=== PATIENT | male | born 1935 | race Caucasian/White ===

== ENCOUNTER 2024-05-05 12:54 | Outpatient (CLI) | payer MEDICARE, BC, SELFPAY ==
[2024-05-05 13:07] LABS: Basophils Percent Auto 0.4 % (0.2-1.2); Eosinophils Absolute Auto 0.4 K/mm3 (0-0.3); Eosinophils Percent Auto 4.6 % (0-4.4); Hematocrit 32.1 % (42.0-52.0); Hemoglobin 10.5 g/dL (14.0-18.0); Immature Granulocyte Absolute 0.02 K/mm3 (0.00-0.031); Immature Granulocyte Percent A 0.2 % (0-0.5); Lymphocytes Absolute Auto 1.86 K/mm3 (0.9-3.2); Lymphocytes Percent Auto 23.2 % (18.3-44.2); Mean Corpuscular HGB Conc 32.7 g/dl (32-36); Mean Corpuscular Hemoglobin 31.1 pg (26-34); Mean Platelet Volume 8.8 fl (7.4-10.4); Monocytes Absolute Auto 0.7 K/mm3 (0.1-0.6); Monocytes Percent Auto 8.1 % (2.6-8.5); Neutrophils Absolute Auto 5.1 K/mm3 (1.3-6.7); Neutrophils Percent Auto 63.5 % (45.5-73.1); Platelet Count Result 150 k/mm3 (150-375); Red Blood Count 3.38 M/mm3 (4.6-6.20); Red Cell Distribution Width 13.8 % (11.5-14.5)
--- OUTSIDE RECORDS SUMMARY | 2024-05-05 14:11 | XMS_ITS | Referral Summary ---
Author Organization [facility] Address [address] [place] [address] Care Team Providers Care Oracle Fusion Developer Name Role Phone Jose Crocker MD Primary Care Provide r Allergies No known active allergies Medications amiodarone (PACERONE) 200 mg tablet Take 200 mg by mouth daily 0 Active atorvastatin (LIPITOR) 40 mg tablet Take 1 tablet (40 mg total) by mouth daily 0 Active OneTouch Ultra Blue Test Strip strip USE 1 STRIP TO CHECK GLUCOSE THREE TIMES DAILY 0 Active calcitRIOL (ROCALTROL) 0.25 mcg capsule Take 1 capsule (0.25 mcg total) by mouth daily 0 Active ciprofloxacin (CIPRO) 250 mg tablet Take 250 mg by mouth 2 (two) times a day 0 Active ferrous sulfate 325 mg (65 mg of elemental iron) tablet TAKE 1 TABLET BY MOUTH ONCE DAILY FOR 90 DAYS 0 Active folic acid (FOLVITE) 1 mg tablet Take 1 tablet (1,000 mcg total) by mouth daily 0 Active Basaglar KwikPen U-100 Insulin 100 unit/mL (3 mL) insulin pen as needed 0 Active Lantus U-100 Insulin 100 unit/mL injection as needed 0 Active HumaLOG KwikPen Insulin 100 unit/mL insulin pen daily as needed 0 Active lansoprazole (PREVACID) 30 mg capsule Take 1 capsule (30 mg total) by mouth daily 0 Active Synthroid 25 mcg tablet TAKE 1 TABLET BY MOUTH ONCE DAILY IN THE MORNING FOR 30 DAYS 0 Active losartan (COZAAR) 50 mg tablet Take 1 tablet (50 mg total) by mouth daily 0 Active BD Ultra-Fine [place] Pen Needle 32 gauge x 5/32 needle USE DIRECTED UP TO 4 TIMES DAILY 0 Active sodium bicarbonate 650 mg tablet Take by mouth daily 0 Active cholecalciferol (VITAMIN D-3) 50,000 unit capsule Take 1 capsule (50,000 Units total) by mouth once a week Active furosemide (LASIX) 20 mg tablet furosemide 20 mg tablet 9 Active Vitamin D2 1,250 mcg (50,000 unit) capsule Take 1 capsule (50,000 Units total) by mouth once a week 2 Active insulin aspart (NovoLOG) 100 unit/mL (3 mL) pen for injection as needed Active Farxiga 5 mg tablet Take 1 tablet (5 mg total) by mouth daily Active aspirin 81 mg enteric coated tablet ASPIRIN 81 MG ORAL TABLET 4 Active phenytoin ER (DILANTIN) 100 mg ER capsuleIndicatio ns: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 with no seizures reported over the last 1 year interval. He has no tolerability issues with medication. I have renewed his phenytoin 200 mg b.i.d. as scheduled. I will obtain a phenytoin level, AST, and ALT for medication monitoring of his phenytoin usage. I will see him back in 1 year. Medication monitoring encounter 11/14/2019 Assessment & Plan (11/14/2019 1:59 PM CDT): I will obtain a phenytoin level, AST, and ALT for medication monitoring of his phenytoin usage. 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 Supportive care is indicated. 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 Gender Identity Not on file Sexual Orientation Not on file Last Filed Vital Signs Vital Sign Reading Time Taken Comments Blood Pressure 100/65 09/07/2023 8:20 AM CDT Pulse 66 09/12/2021 10:06 AM CDT Temperature 36.3 C (97.3 F) 09/12/2021 10:06 AM CDT Respiratory Rate - - Oxygen Saturation 98% 08/29/2014 10:59 AM CDT Inhaled Oxygen Concentration - - Weight 65.3 kg (144 lb) 09/07/2023 8:20 AM CDT Height 160 cm (5' 3 ) 09/07/2023 8:20 AM CDT Body Mass Index 25.51 09/07/2023 8:20 AM CDT Plan of Treatment Not on file Procedures Procedure Name Priority Date/Time Associated Diagnosis Comments SERUM LIPID PANEL Routine 06/13/2014 5:2 3 AM CDT from Last 3 Months or Most Recently Relevant to Health Maintenance Results * (ABNORMAL) Serum lipid panel (06/13/2014 5:23 AM CDT) Cholesterol 122 0 - 200 mg/dl HISTORICAL RESULTS Comment: Interpretive Data Desirable: <200 mg/dL Borderline high: 200-239 mg/dL High: >240 mg/dL Literature Reference: National Cholesterol Education Program (NCEP) Expert Panel on Detection, Evaluation, and Treatment of High Blood Cholesterol in Adults (Adult Treatment Panel III). Circulation 2004; 110:227. Current interpretive data was last revised on 2005. Triglycerides 142 0 - 150 mg/dl HISTORICAL RESULTS Comment: Interpretive Data Desirable: < 150 mg/dL Borderline High: 150 - 199 mg/dL High: > 200 mg/dL Literature Reference: See Cholesterol Current interpretive data was last revised on 06. HDL 33(L) 40 - 199 mg/dl HISTORICAL RESULTS Comment: Interpretive Data Less than 40 mg/dL - low; A major risk factor for heart disease. Greater than or equal to 60 mg/dL - High; considered protective of heart disease. Literature Reference: See Cholesterol Current interpretive data was last revised on 2007. LDL 61 0 - 129 mg/dl HISTORICAL RESULTS Comment: Interpretive Data Optimal: < 100 mg/dL Near Optimal: 100 - 129 mg/dL Borderline High: 130 - 159 mg/dL High: > 160 mg/dL Literature Reference: See Cholesterol Current interpretive data was last revised on 06. Non-HDL cholesterol, calculated 89 mg/dl HISTORICAL RESULTS Comment: Interpretive Data When triglycerides are >200 mg/dL, non-HDL C is a secondary target of therapy, with a goal 30 mg/dL higher than the identified LDL-C goal. Reference: See Cholesterol Reference. Current interpretive data was last revised 2011. Serum 06/13/2014 5:23 AM CDT Bruce Garcia MD LAB BLOOD ORDERABLES Final R esult HISTORICAL RESULTS from Last 3 Months or Most Recently Relevant to Health Maintenance Insurance MEDICARE BLUE TRADITIONAL OOS MEDICARE BLUE TRADITIONAL OOS Care Teams Oracle Fusion Developer Relationship Specialty Start Date End Date Jose Crocker MD [address] [place] [address] PCP - General Internal Medicine 11/14/19
--- OUTSIDE RECORDS SUMMARY | 2024-05-05 14:11 | XMS_ITS | Patient Health Record ---
Author Organization [facility] Address [address] [place] [address] Care Team Providers Care Milk Deliverer Name Role Phone Aguilar Garcia Unavailable [phone] REASON FOR REFERRAL No Information MEDICATIONS Medication SIG (Take, Route, Frequency, Duration) Notes Start Date End Date Status Sodium Bicarbonate 650 MG Take 1 tablet by mouth twice daily for 90 Active Vitamin D (Ergocalciferol) 1.25 MG (91722 UT) Take 1 capsule by mouth once a week for 21 Active Furosemide 40 MG Take 1 tablet by brian th once daily for 90 Active Calcitriol 0.25 MCG Take 1 capsule by mo uth once daily for 90 Active PROBLEMS Problem Type ICD Code Onset Dates Problem Status W/U Status Risk SNOMED Code Notes Problem Type 2 diabetes mellitus with hyperglycemia (E11.65) Active confirmed Hyperglycemia d ue to type 2 diabetes mellitus (436498336002965) Problem Secondary hyperparathyroid ism, not elsewhere classified (E21.1) Active confirmed Secondary hyperparathyroidism (26309727) Problem Essential (primary) hypertension (I10) Active confirmed Essential hypertension (18976382) Problem Renal osteodystrophy (N25.0) Active confirmed Renal osteodyst rophy (40370074) Problem Proteinuria, unspecified (R80.9) Active confirmed Proteinuria (34843699) Problem Colostomy 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) Active confirmed Colostomy prese nt (360612714) Problem Chronic kidney disease, stage 3 unspecified (N18.30) Active confirmed Chronic kidney disease stage 3 (disorder) (223183991) Problem Acute metabolic acidosis (E87.21) Active confirmed Encounters Encounter Location Date Provider Diagnosis [facility] [address] [facility] [address] [place] [address] 07/31/2023 Aguilar Garcia Chronic kidney disea se, stage 4 (severe) N18.4 ; Essential (primary) hypertension I10 ; Secondary hyperparathyroidism, not elsewhere classified E21.1 ; Renal osteodystrophy N25.0 ; Proteinuria, unspecified R80.9 and Type 2 diabetes mellitus with hyperglycemia E11.65 [facility] [address] [place] [address] 10/28/2023 Aguilar Garcia [facility] [address] [place] [address] 11/25/2023 Aguilar Garcia [facility] [address] [place] [address] 12/23/2023 Aguilar Garcia [facility] [address] [place] [address] 01/13/2024 Aguilar Garcia Essential (primary) hypertension I10 ; Chronic kidney disease, stage 3 unspecified N18.30 ; Secondary hyperparathyroidism, not elsewhere classified E21.1 ; Renal osteodystrophy N25.0 ; Proteinuria, unspecified R80.9 ; Type 2 diabetes mellitus with hyperglycemia E11.65 and Chronic kidney disease, stage 4 (severe) N18.4 [facility] [address] [place] [address] 03/16/2024 Aguilar Garcia Chronic kidney disea se, stage 3 unspecified N18.30 ; Essential (primary) hypertension I10 ; Colostomy status Z93.3 and Acute metabolic acidosis E87.21 [facility] [address] [place] [address] 05/04/2024 Aguilar Garcia Chronic kidney disea se, stage 3 unspecified N18.30 ; Renal osteodystrophy N25.0 ; Essential (primary) hypertension I10 ; Secondary hyperparathyroidism, not elsewhere classified E21.1 ; Proteinuria, unspecified R80.9 ; Type 2 diabetes mellitus with hyperglycemia E11.65 ; Colostomy status Z93.3 and Acute metabolic acidosis E87.21 [facility] [address] [place] [address] 07/31/2023 Aguilar Garcia [facility] [address] [place] [address] 01/13/2024 Aguilar Garcia ASSESSMENTS Encounter Date Diagnosis Assessment Notes Treatment Notes Treatment Clinical Notes Section Notes 07/31/2023 Chronic kidney disease, stage 4 (severe) (ICD-10 - N18.4) 01/13/2024 Essential (primary) hypertension (ICD-10 - I10) 01/13/2024 Chronic kidney disease, stage 3 unspecified (ICD-10 - N18.30) 03/16/2024 Chronic kidney disease, stage 3 unspecified (ICD-10 - N18.30) 05/04/2024 Chronic kidney disease, stage 3 unspecified (ICD-10 - N18.30) 05/04/2024 Renal osteodystrophy (ICD-10 - N25.0) 03/16/2024 Essential (primary) hypertension (ICD-10 - I10) 01/13/2024 Secondary hyperparathyroidism , not elsewhere classified (ICD-10 - E21.1) 07/31/2023 Essential (primary) hypertension (ICD-10 - I10) 07/31/2023 Secondary hyperparathyroidism , not elsewhere classified (ICD-10 - E21.1) 01/13/2024 Renal osteodystrophy (ICD-10 - N25.0) 03/16/2024 Colostomy status (ICD-10 - Z93.3) 05/04/2024 Essential (primary) hypertension (ICD-10 - I10) 05/04/2024 Secondary hyperparathyroidism , not elsewhere classified (ICD-10 - E21.1) 03/16/2024 Acute metabolic acidosis (ICD-10 - E87.21) 01/13/2024 Proteinuria, unspecified (ICD-10 - R80.9) 07/31/2023 Renal osteodystrophy (ICD-10 - N25.0) 07/31/2023 Proteinuria, unspecified (ICD-10 - R80.9) 01/13/2024 Type 2 diabetes mellitus with hyperglycemia (ICD-10 - E11.65) 05/04/2024 Proteinuria, unspecified (ICD-10 - R80.9) 05/04/2024 Type 2 diabetes mellitus with hyperglycemia (ICD-10 - E11.65) 07/31/2023 Type 2 diabetes mellitus with hyperglycemia (ICD-10 - E11.65) 01/13/2024 Chronic kidney disease, stage 4 (severe) (ICD-10 - N18.4) 05/04/2024 Colostomy status (ICD-10 - Z93.3) 05/04/2024 Acute metabolic acidosis (ICD-10 - E87.21) PLAN OF TREATMENT Next Appt Details Provider Name:Aguilar Garcai , 07/06/2024 03:15:00 PM, [address] [facility], [place], [address],
--- OUTSIDE RECORDS SUMMARY | 2024-05-05 14:11 | XMS_ITS ---
Author Organization [facility] Address [address] [place] [address] Care Team Providers Care Sugar Cane Grower Name Role Phone Abel Garciat Unavailable [phone] Encounters Encounter Location Date Provider Diagnosis [facility] [address] [facility] [address] [place] [address] 05/04/2024 Aguilar Garcia Chronic kidney disea se, stage 3 unspecified N18.30 ; Renal osteodystrophy N25.0 ; Essential (primary) hypertension I10 ; Secondary hyperparathyroidism, not elsewhere classified E21.1 ; Proteinuria, unspecified R80.9 ; Type 2 diabetes mellitus with hyperglycemia E11.65 ; Colostomy status Z93.3 and Acute metabolic acidosis E87.21 ASSESSMENTS Encounter Date Diagnosis Assessment Notes Treatment Notes Treatment Clinical Notes Section Notes 05/04/2024 Chronic kidney disease, stage 3 unspecified (ICD-10 - N18.30) 05/04/2024 Renal osteodystrophy (ICD-10 - N25.0) 05/04/2024 Essential (primary) hypertension (ICD-10 - I10) 05/04/2024 Secondary hyperparathyroidism , not elsewhere classified (ICD-10 - E21.1) 05/04/2024 Proteinuria, unspecified (ICD-10 - R80.9) 05/04/2024 Type 2 diabetes mellitus with hyperglycemia (ICD-10 - E11.65) 05/04/2024 Colostomy status (ICD-10 - Z93.3) 05/04/2024 Acute metabolic acidosis (ICD-10 - E87.21) PLAN OF TREATMENT Next Appt Details Provider Name:Aguilar Garcia , 07/06/2024 03:15:00 PM, [address] [facility], [address], [place], [address], Progress Notes * MADDISON CARLOSDOB: [birth year] (88 yo M)Acc No.[id number]:05/04/2024 Progress Notes Patient: MADDISON CARLOS Provider: MD BOLIVAR, Carin.Italo.C.P, F.A.S.N. :1935 Age:88 Y Sex:Male Date:05/04/2024 Address:[address] [place] [address] Subjective: * Chief Complaints: * * Medical History: Objective: Assessment: * Assessment: 1. Chronic kidney disease, stage 3 unspecified - N18.30 (Primary) 2. Renal osteodystrophy - N25.0 3. Essential (primary) hypertension - I10 4. Secondary hyperparathyroidism, not elsewhere classified - E21.1 5. Proteinuria, unspecified - R80.9 6. Type 2 diabetes mellitus with hyperglycemia - E11.65 7. Colostomy status - Z93.3 8. Acute metabolic acidosis - E87.21 Plan: * Treatment: * Billing Information: * Visit Code: 69999 Office Visit, Est Pt., Level 4. * Procedure Codes: * TESTER Sign off status: Pending * Provider: MD BOLIVAR, Carin.Italo.C.P, F.A.S.N. Date: 05/04/2024
--- OUTSIDE RECORDS SUMMARY | 2024-05-05 14:11 | XMS_ITS | Clinical Summary ---
Author Organization [facility] Address [address] [place] [address] Care Team Providers Care Offender Employment Specialist Name Role Phone Keyon Crocker MD Primary Care Provider Allergies No known active allergies Medications atorvastatin (LIPITOR) 40 mg tablet Take 40 mg by mouth daily with supper. Active folic acid (FOLVITE) 1 mg tablet Take 1 mg by mouth daily. Active losartan (COZAAR) 50 mg tablet Take 50 mg by mouth daily. Active ferrous sulfate 325 mg (65 mg iron) tablet Take 325 mg by mouth daily. Active cholecalciferol 50,000 unit Capsule Take 50,000 Units by mouth every 7 days. Active lansoprazole (PREVACID) 30 mg Capsule, Delayed Release(E.C.) Take 30 mg by mouth daily. Active SODIUM BICARBONATE ORAL Take by mouth. Activ e furosemide (LASIX) 20 mg tablet Take 20 mg by mouth daily. Active insulin glargine (LANTUS) 100 unit/mL injection Inject by subcutaneous injection. Active amiodarone (CORDARONE) 200 mg tablet Take 200 mg by mouth daily. Active calcitRIOL (ROCALTROL) 0.25 mcg capsule Take 0.25 mcg by mouth daily. Active aspirin (ECOTRIN EC) 81 mg Tablet, Delayed Release (E.C.) Take 81 mg by mouth daily. Active phenytoin sodium (DILANTIN) 100 mg extended release capsule TAKE 2 CAPSULES BY MOUTH TWICE DAILY 3 11/17/19 19 Active VITAMIN D2 50,000 unit capsule TAKE 1 CAPSULE BY MOUTH ONCE A WEEK 2 12/15/19 19 Active Cyanocobalamin- Cobamamide 5,000-100 mcg Tablet, Sublingual cyanocobalamin (B12)-cobamamide 5,000 mcg-[address] by sublingual route. Active ONETOUCH ULTRA BLUE TEST STRIP Strip USE 1 STRIP TO CHECK GLUCOSE THREE TIMES DAILY 03/21/19 Active Insulin Syringe-Needle U-100 (BD Insulin Syringe Ultra-Fine) 0.5 mL 31 gauge x 5/16 Syringe BD Insulin Syringe Ultra-Fine 0.5 mL 31 gauge x 5/16 Active cyanocobalamin, vitamin B-12, 2,[address] 2,500 mcg under tongue every 30 days. Active docusate sodium (Colace) 100 mg capsule Take by mouth. 08/26/19 18 Active Synthroid 25 mcg tablet TAKE 1 TABLET BY MOUTH ONCE DAILY IN THE MORNING FOR 30 DAYS 01/11/20 Active levothyroxine 75 mcg tablet levothyroxine 75 mcg tablet Active Active Problems Problem Noted Date Diagnosed Date Colostomy status 04/21/2019 Ulcerative colitis without complications 020 Type 2 diabetes mellitus wit h diabetic chronic kidney disease 04/21/2019 Anemia of chronic renal failure, stage 4 (severe ) 01/13/2019 Encounters Date Type Department Care Team Description 05/05/2024 1:00 PM POWDER CORE TESTER Office Visit [facility] Oncology and Hematology - [place] [place] [id number] Jung Arvizu MD Anemia of chronic kidney failure, stage 4 (severe) ([facility]) (Primary Dx) 05/04/2024 Orders Only [facility]cology [facility]ology - [place] [place] [phone] Jung Arvizu MD 04/20/2024 External Device Data STL ABSTRACTION Provider, Abstract 04/18/2024 Telephone [facility]ology - [place] [place] [phone] Jung Arvizu MD labs for appt 03/24/2024 External Device Data STL ABSTRACTION Provider, Abstract from Last 3 Months Family History Medical History Relation Name Comments Shanae Gerhig's Disease Mother Relation Name Status Comments Brother Alive Father Maternal Grandfather Alive Mother Sister 1 Alive Sister 2 Alive Sister 3 Alive Social History Tobacco Use Types Packs/Day Years Used Date Smoking Tobacco: Former Cigarettes 2 30 0 06/01/1944 - 06/01/1974 Smokeless Tobacco: Never Tobacco Cessation:Counseling Given: Not Answered Alcohol Use Standard Drinks/Week Comments Yes 0 (1 standard drink = 0.6 oz pur e alcohol) Sex and Gender Information Value Date Recorded Sex Assigned at Not on file Legal Sex Male 12:03 PM POWDER CORE TESTER Gender Identity Not on file Sexual Orientation Not on file Last Filed Vital Signs Vital Sign Reading Time Taken Comments Blood Pressure 138/71 05/05/2024 1:17 PM POWDER CORE TESTER Pulse 66 05/05/2024 1:14 PM POWDER CORE TESTER Temperature 36.6 C (97.8 F) 05/05/2024 1:14 PM POWDER CORE TESTER Respiratory Rate 15 05/05/2024 1:14 PM POWDER CORE TESTER Oxygen Saturation 95% 05/05/2024 1:14 PM POWDER CORE TESTER Inhaled Oxygen Concentration - - Weight 62.1 kg (137 lb) 05/05/2024 1:14 PM POWDER CORE TESTER Height 160 cm (5' 3 ) 09/12/2021 1:09 PM CDT Body Mass Index 24.27 09/12/2021 1:09 PM CDT Plan of Treatment Upcoming Encounters Date Type Department Care Team (Late st Contact Info) Description 11/16/2024 1:00 PM CDT Office Visit [facility] Oncology and Hematology [facility] [address] [place] [address] [facility] [address] [place] [address] Jung Arvizu MD [address] [facility] [address] [place] [address] Health Maintenance Due Date Last Done Comments DIABETES ANNUAL FOOT EXAM 06/04/1953 DIABETES MICROALBUMIN ANNUAL SCREEN 06/04/1953 LDL CHOLESTEROL ANNUAL 06/04/1953 DTAP/TDAP/TD VACCINES (1 - Tdap) 06/04/1954 PNEUMOCOCCAL VACCINE 50+ YEA RS (1 of 2 - PCV) 06/04/1954 Traditional Medicare (ACO) A nnual Wellness Visit 06/04/1954 ZOSTER VACCINE (1 of 2) 06/04/1985 RSV VACCINE (60+ or ) (1 - 1-dose 75+ series) 06/04/2010 DIABETES ANNUAL RETINAL EXAM 11/29/2022, 04/10/2017, 04/07/2017, Additional history exists INFLUENZA VACCINE (#1) 2023 DIABETES HBA1C Q 6 MONTHS 04/21/20242023, 08/31/2023, 04/07/2023, Additional history exists Procedures Procedure Name Priority Date/Time Associated Diagnosis Comments IRON PANEL Routine 04/26/2024 3:06 PM POWDER CORE TESTER from Last 3 Months Results * IRON PANEL (04/26/2024 3:06 PM POWDER CORE TESTER) Blood us Jung Arvizu MD CHEMISTRY ORDERABLES Final Resu lt from Last 3 Months Insurance MEDICARE PART A AND B [employer] ACCESS/TRUE [employer] PPO MEDICARE PART A AND B [employer] ACCESS/[employer] PPO Care Teams Offender Employment Specialist Relationship Specialty Start Date End Date Keyon Crocker MD PCP - General Internal Medicine 03/09/18
--- OUTSIDE RECORDS SUMMARY | 2024-05-05 14:11 | XMS_ITS | Clinical Summary ---
Author Organization [facility] [place] Address [address] [place] [address] Care Team Providers Care Cane Splicer Name Role Phone Jose Crocker MD Primary [...] monitoring of his phenytoin usage. 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 Supportive care is indicated. Type 2 diabetes mellitus wit h diabetic chronic kidney disease 04/21/2019 Fall 03/20/2018 Ulcerative pancolitis 07/13/2012 Chronic ulcerative proctitis 06/09/2011 Open wound 10/31/2010 Surgical History Surgery Date Site/Laterality Comments NM CORONARY ARTERY BYPASS 1 CORONARY VENOUS GRAFT CABG - (Added by TW Conv) NM CONTINENT ILEOSTOMY KOCK PROCEDURE SPX Ileostomy Care - (Added by TW Conv) ILEOSTOMY Ileostomy - (Added by TW Conv) Medical History Medical History Date Comments History of other diseases of the circulatory system, not elsewhere classified Acute Myocardial Infarction - (Added by TW Conv) Personal history of arthritis Ar thritis - (Added by TW Conv) Personal history of other di seases of the digestive system History of gastritis - (Adde d by TW Conv) Pulmonary emphysema (HCC) Emphys chace - (Added by TW Conv) Personal history of other di seases of the circulatory system History of hypertension - (A dded by TW Conv) Personal history of other en docrine, nutritional and metabolic disease History of diabetes mellitus - (Added by TW Conv) Personal history of diseases of the blood and blood-forming organs and certain disorders involving the immune mechanism History of anemia - (Added b y TW Conv) Seizures (HCC) Family History Medical History Relation Name Comments Hypertension Brother No Known Problems Father Cancer Mother Hypertension Other 1 Hypertension - mother (Added by TW Conv) Breast cancer Other 2 Breast Cancer - MGM (Added by TW Conv) Diabetes Other 3 Diabetes Mellit us - mother (Added by TW Conv) ALS Other 4 Amyotrophic Lat eral Sclerosis - mother (Added by TW Conv) Breast cancer Sister 1 No Known Problems Sister 2 No Known Problems Sister 3 Relation Name Status Comments Brother Alive Father Mother Other 1 Other 2 Other 3 Other 4 Sister 1 Alive Sister 2 Alive Sister 3 Alive Social History Tobacco Use Types Packs/Day Years Used Date Smoking Tobacco: Former Smokeless Tobacco: Never Tobacco Cessation:Counseling Given: Not Answered Sex and Gender Information Value Date Recorded Sex Assigned at Not on file Legal Sex Male 1:31 AM [employer] Gender Identity Not on file Sexual Orientation Not on file Obstetrics History Last Filed Vital Signs Vital Sign Reading [...] 09/07/2023 8:20 AM CDT Plan of Treatment Health Maintenance Due Date Last Done Comments Albumin Creatinine Ratio, Urine 1935 Depression Screening 1935 Fall Risk Assessment 1935 Foot Exam 1935 TSH Level 1935 eGFR 1935 Dilated Eye Exam 06/04/1945 DTaP/Tdap/Td Vaccine (1 - Tdap) 06/04/1946 Hepatitis B Screening 06/04/1953 Well Visit 65+ 06/04/2000 Lipid Panel 06/14/2015 06/13/2014, 06/10/2013 Hemoglobin A1C 09/18/2018 03/21/2018 Influenza Vaccine (#1) 2023 9, 01/04/2019, 12/15/2017, Additional history exists Pneumococcal vaccine 65+ Completed 02/05/2017, 08/2015 Zoster Vaccine Completed 05/03/2019, 03/2019, 01/04/2019 Procedures Procedure Name Priority Date/Time Associated Diagnosis [...] revised 2011. Serum 06/13/2014 5:23 AM CDT us Bruce Garcia MD LAB BLOOD ORDERABLES Final R esult HISTORICAL RESULTS from Last 3 Months or Most Recently Relevant to Health Maintenance Insurance MEDICARE BLUE TRADITIONAL OOS MEDICARE BLUE TRADITIONAL OOS Care Teams Cane Splicer Relationship Specialty Start Date End Date Jose Crocker MD [address] [place] [address] PCP - General Internal Medicine 11/14/19
--- OUTSIDE RECORDS SUMMARY | 2024-05-05 14:11 | XMS_ITS ---
Author Organization [facility] Address [address] [facility] [address] [facility] [address] [place] [address] Care Team Providers Care Employment Counselor Name Role Phone JoseLuisAguilar Unavailable [phone] MEDICATIONS Medication SIG (Take, Route, Fr equency, Duration) Notes Start Date End Date Status Calcitriol 0.25 MCG Take 1 capsule by mo uth once daily for 90 Active Encounters Encounter Location Date Provider Diagnosis [facility] [address] [facility] [address] [place] [address] 01/13/2024 Aguilar Garcia PLAN OF TREATMENT Medication Medication Name Sig Start Date Stop Date Notes Calcitriol 0.25 MCG Take 1 capsule by mo uth once daily for 90 Next Appt Details Provider Name:Aguilar Garcia , 07/06/2024 03:15:00 PM, [address] [facility] [address], [place], [address], Progress Notes * MADDISON CARLOSDOB: [birth year] (88 yo M)Acc No.[id number]:01/13/2024 Patient: MADDISON CARLOS :1935 Age:88 Y Sex:Male Address:[address] [place] [address], [facility] * Refills Refill Calcitriol Capsule, 0.25 MCG, 90 Capsule, Take 1 capsule by mouth once daily, 90, Refills=0 * true * Date:
--- OUTSIDE RECORDS SUMMARY | 2024-05-05 14:11 | XMS_ITS ---
Author Organization [facility] Address [address] [facility] [address] [facility] [address] [place] [address] Care Team Providers Care Sign Language Instructor Name Role Phone Aguilar Garcia Unavailable [phone] MEDICATIONS Medication SIG (Take, Route, Frequency, Duration) Notes Start Date End Date Status Vitamin D (Ergocalciferol) 1.25 MG (28305 UT) Take 1 capsule by mouth once a week for 21 Active Furosemide 40 MG Take 1 tablet by brian th once daily for 90 Active Calcitriol 0.25 MCG Take 1 capsule by mo uth once daily for 90 Active Sodium Bicarbonate 650 MG Take 1 tablet by mouth twice daily for 90 Active PROBLEMS Problem Type ICD Code Onset Dates Problem Status W/U Status Risk SNOMED Code Notes Problem Colostomy 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) Active confirmed Colostomy present (726311993) Problem Acute metabolic acidosis (E87.21) Active confirmed Encounters Encounter Location Date Provider Diagnosis [facility] [address] [facility] [address] [place] [address] 03/16/2024 Aguilar Garcia Chronic kidney disease, stage 3 unspecified N18.30 ; Essential (primary) hypertension I10 ; Colostomy status Z93.3 and Acute metabolic acidosis E87.21 ASSESSMENTS Encounter Date Diagnosis Assessment Notes Treatment Notes Treatment Clinical Notes Section Notes 03/16/2024 Chronic kidney disease, stage 3 unspecified (ICD-10 - N18.30) 03/16/2024 Essential (primary) hypertension (ICD-10 - I10) 03/16/2024 Colostomy status (ICD-10 - Z93.3) 03/16/2024 Acute metabolic acidosis (ICD-10 - E87.21) PLAN OF TREATMENT Next Appt Details Provider Name:Aguilar Garcia , 07/06/2024 03:15:00 PM, [address], [address], Progress Notes * MADDISON CARLOSDOB: [birth year] (88 yo M)Acc No.[id number]:03/16/2024 Progress Notes Patient: MADDISON CARLOS Provider: MD BOLIVAR, ShajiP, F.A.S.N. :1935 Age:88 Y Sex:Male Date:03/16/2024 Address:[address] [place], [place] [id number] Subjective: * Chief Complaints: * * Medical History: * Medications: Taking Vitamin D (Ergocalciferol) 1.25 MG (73455 UT) Capsule Take 1 capsule by mouth once a week , Taking Furosemide 40 MG Tablet Take 1 tablet by mouth once daily , Taking Calcitriol 0.25 MCG Capsule Take 1 capsule by mouth once daily , Taking Sodium Bicarbonate 650 MG Tablet Take 1 tablet by mouth twice daily Objective: Assessment: * Assessment: 1. Chronic kidney disease, stage 3 unspecified - N18.30 (Primary) 2. Essential (primary) hypertension - I10 3. Colostomy status - Z93.3 4. Acute metabolic acidosis - E87.21 Plan: * Treatment: * Billing Information: * Visit Code: 85996 Office Visit, Est Pt., Level 4. * Procedure Codes: * DENTIAL COUNSELOR Sign off status: Pending * Provider: MD BOLIVAR, Carin.Italo.C.P, F.A.S.N. Date: 03/16/2024
--- OUTSIDE RECORDS SUMMARY | 2024-05-05 14:12 | XMS_ITS | Patient Health Summary ---
Author Organization [facility] Address [address] [place] [address] Care Team Providers Care Zinc Miner Name Role Phone Keyon Crocker MD Primary Care Provider Care, [facility] Unavailable [phone] Aguilar Garcia MD Unavailable [phone] Note from [facility],non-owned Affiliates and Associated Physician Practices is amultiple site organization consisting of ambulatory clinics and hospital sitesin [place], [place], [place] and [place]. This disclosure is being madepursuant to the Care Everywhere program and may not contain all information available regarding this patient. Last updated 17.[facility] Allergies No known active allergies Medications * Be aware that medications may not be up to date on this document. Alwaysverify current medications with the patient. * aspirin (ASPIRIN) 81 MG chew tablet Take 81 mg by mouth once daily * atorvastatin (LIPITOR) 40 MG tablet Take 40 mg by mouth at bedtime * calcitriol (ROCALTROL) 0.25 MCG capsule Take 0.25 mcg by mouth once daily * vitamin D, ergocalciferol, (DRISDOL) 14923 UNITS capsule Take 50,000 Units by mouth every 7 days * folic acid (FOLVITE) 1 MG tablet Take 1 mg by mouth once daily * phenytoin ER (PHENYTEK) 200 MG capsule Take by mouth 2 times daily 200 mg q AM 300 mg q PM * LOSARTAN POTASSIUM PO Take 50 mg by mouth once daily * insulin glargine (LANTUS) vial Inject 20 Units subcutaneously once daily as needed * ferrous sulfate 325 (65 FE) MG tablet Take 325 mg by mouth 2 times daily with morning and evening meal * lansoprazole (PREVACID) 30 MG capsule Take 30 mg by mouth daily before breakfast * cyanocobalamin, vitamin B-12, 2500 MCG tablet Dissolve 2,500 mcg under the tongue every 30 days * docusate sodium (COLACE) 100 MG capsule Take 100 mg by mouth 2 times daily * sodium bicarbonate 650 MG tablet Take 650 mg by mouth 2 times daily * polyethylene glycol 3350 (MIRALAX) packet(Started 03/24/2018) Take 17 g by mouth once daily * amiodarone (CORDARONE) 200 MG tablet(Started 03/24/2018) Take 1 tablet by mouth once daily * ondansetron (ZOFRAN) 4 MG tablet(Started 03/23/2018) Take 1 tablet by mouth every 6 hours as needed for Nausea/Vomiting * oxyCODONE-acetaminophen (PERCOCET) 5-325 MG tablet(Started 03/23/2018) Take 1 tablet by mouth every 6 hours as needed * lisinopril (PRINIVIL; ZESTRIL) 40 MG tablet(Started 12/22/2017) * losartan (COZAAR) 50 MG tablet(Started 03/23/2018) TK 1 T PO QD * phenytoin ER (DILANTIN) 100 MG capsule(Started 03/03/2018) * furosemide (LASIX) 20 MG tablet(Started 06/16/2018) Take by mouth once daily 2 refills left * Aspirin (ASPIR-LOW) 81 MG qd * Glucose Blood (COOL BLOOD GLUCOSE TEST STRIPS ) Dx: E11.9. Tests sugars 3 times daily, One Touch Ultra Mini Active Problems Problem Noted Date Diagnosed Date Olecranon bursitis, right elbow 06/21/2018 Closed fracture of proximal end of right humerus with routine healing 05/10/2018 Fall 03/20/2018 Humerus head fracture, right, closed, initial en counter 03/20/2018 Ulcerative pancolitis 07/13/2012 Chronic ulcerative proctitis 06/09/2011 Open wound 10/31/2010 Social History Tobacco Use Types Packs/Day Years Used Date Smoking Tobacco: Never Smokeless Tobacco: Never Alcohol Use Standard Drinks/Week Comments No 0 (1 standard drink = 0.6 oz pur e alcohol) Sex and Gender Information Value Date Recorded Sex Assigned at Not on file Gender Identity Not on file Sexual Orientation Not on file Last Filed Vital Signs Vital Sign Reading Time Taken Comments Blood Pressure 169/86 04/07/2018 2:03 PM [employer] Pulse 69 04/07/2018 2:03 PM [employer] Temperature 36.1 C (96.9 F) 03/23/2018 4:31 PM [employer] Respiratory Rate 18 03/23/2018 4:31 PM [employer] Oxygen Saturation 94% 03/23/2018 4:31 PM [employer] Inhaled Oxygen Concentration - - Weight 62.6 kg (138 lb) 10/05/2018 10:22 AM CDT Height 160 cm (5' 3 ) 10/05/2018 10:22 AM CDT Body Mass Index 24.45 10/05/2018 10:22 AM CDT Procedures * XR SHOULDER RIGHT 2VW OR MORE(Performed 10/05/2018) Performed for Follow up * XR SHOULDER RIGHT 2VW OR MORE(Performed 08/02/2018) Performed for Follow up * XR SHOULDER RIGHT 2VW OR MORE(Performed 06/21/2018) Performed for Follow up * XR SHOULDER RIGHT 2VW OR MORE(Performed 05/10/2018) Performed for Right shoulder pain, unspecified chronicity * CARDIAC EKG ORDER(Performed 04/25/2018) * XR SHOULDER RIGHT 2VW OR MORE(Performed 04/07/2018) Performed for Pain in joint of right shoulder * GLUCOSE - POINT OF CARE(Performed 03/23/2018) * VAS CAROTID DUPLEX BILATERAL(Performed 03/23/2018) Performed for Humerus head fracture, right, closed, initial encounter * GLUCOSE - POINT OF CARE(Performed 03/23/2018) * MAGNESIUM BLOOD(Performed 03/23/2018) * BASIC METABOLIC PANEL (CALCIUM TOTAL)(Performed 03/23/2018) * GLUCOSE - POINT OF CARE(Performed 03/22/2018) * GLUCOSE - POINT OF CARE(Performed 03/22/2018) * GLUCOSE - POINT OF CARE(Performed 03/22/2018) * GLUCOSE - POINT OF CARE(Performed 03/22/2018) * PHOSPHORUS BLOOD(Performed 03/22/2018) * MAGNESIUM BLOOD(Performed 03/22/2018) * BASIC METABOLIC PANEL (CALCIUM TOTAL)(Performed 03/22/2018) * CBC W/O DIFFERENTIAL(Performed 03/22/2018) * GLUCOSE - POINT OF CARE(Performed 03/21/2018) * GLUCOSE - POINT OF CARE(Performed 03/21/2018) * GLUCOSE - POINT OF CARE(Performed 03/21/2018) * GLUCOSE - POINT OF CARE(Performed 03/21/2018) * HEMOGLOBIN A1C(Performed 03/21/2018) * GLUCOSE - POINT OF CARE(Performed 03/21/2018) * GLUCOSE - POINT OF CARE(Performed 03/20/2018) * GLUCOSE - POINT OF CARE(Performed 03/20/2018) * GLUCOSE - POINT OF CARE(Performed 03/20/2018) * GLUCOSE - POINT OF CARE(Performed 03/20/2018) * EKG 12-LEAD(Performed 03/20/2018) Performed for Fall, initial encounter * T4 FREE(Performed 03/20/2018) * TSH(Performed 03/20/2018) * COMPREHENSIVE METABOLIC PANEL(Performed 03/20/2018) * CBC W AUTO DIFFERENTIAL(Performed 03/20/2018) * GLUCOSE - POINT OF CARE(Performed 03/20/2018) * XR SHOULDER RIGHT 2VW OR MORE(Performed 03/20/2018) Performed for Fall, initial encounter * CT CERVICAL SPINE WO CONTRAST(Performed 03/20/2018) Performed for Fall, initial encounter * CT HEAD WO CONTRAST(Performed 03/20/2018) Performed for Fall, initial encounter * XR SHOULDER RIGHT 2VW OR MORE(Performed 03/20/2018) Performed for Fall, initial encounter Results * XR SHOULDER RIGHT 2VW OR MORE (10/05/2018 10:08 AM CDT) Only the most recent of7 resultswithin the time period is included. Anatomical Region Laterality Modality Upper Extremity Radiographic Ilsa ging 10/05/2018 10:2 1 AM CDT Impressions 10/05/2018 10:21 AM CDT There is a nonunited humeral neck fracture with anterior angulation and impaction at the fracture site which appears improved in alignment when compared with the prior study however remains nonunited. No dislocation is seen. Degenerative changes are present in the acromioclavicular joint. Reading Radiologist: Mega Rincon MD on 10/05/2018 at 10:21 AM Narrative 10/05/2018 10:21 AM CDT Exam: Right shoulder, 3 views. History: Shoulder pain. Procedure Note Mega Rincon MD - 10/05/2018 Exam: Right shoulder, 3 views. History: Shoulder pain. IMPRESSION There is a nonunited humeral neck fracture with anterior angulation and impaction at the fracture site which appears improved in alignment when compared with the prior study however remains nonunited. No dislocation is seen. Degenerative changes are present in the acromioclavicular joint. Reading Radiologist: Mega Rincon MD on 10/05/2018 at 10:21 AM Heather Chambers PA-C DIAGNOSTIC IMAGING O RDERABLES * CARDIAC EKG ORDER (04/25/2018 10:46 AM [employer]) Narrative 04/25/2018 10:46 AM [employer] Ordered by an unspecified provider. Scanned Document CARDIAC SERVICES ORD ERABLES * (ABNORMAL) GLUCOSE - POINT OF CARE (03/23/2018 1:31 PM [employer]) Only the most recent of16 resultswithin the time period is included. Glucose WB/POC 147(H) 70 - 115 mg/dL 03/23/2018 1:34 PM [employer] [facility] Specimen Type Arterial/C apillary 03/23/2018 1:34 PM [employer] [facility] Blood BLOOD SPECIMEN / Unknown 03/23/2018 1:31 PM [employer] 03/23/2018 1:34 PM [employer] Narrative [facility] - 03/23/2018 1:34 PM [employer] Disintegrator: VALDO BELTRÁN Doug Borjas MD LAB - POINT OF CARE ORDERABLES [address] [phone] * VAS CAROTID DUPLEX BILATERAL (03/23/2018 12:20 PM [employer]) Anatomical Region Laterality Modality Duplex Doppler 03/23/2018 11:5 0 AM [employer] Narrative Procedure Note Dharmesh Chaudhry MD - 03/23/2018 Connie Olvera MD VASCULAR LAB O RDERABLES * (ABNORMAL) BASIC METABOLIC PANEL (CALCIUM TOTAL) (03/23/2018 2:54 AM [employer]) Only the most recent of2 resultswithin the time period is included. BUN 28(H) 7 - 26 mg/dL 03/23/2018 4:08 AM [facility] Creatinine 2.3(H) 0.6 - 1.2 mg/dL 03/23/2018 4:08 AM [facility] Sodium 132(L) 136 - 145 mmol/L 03/23/2018 4:08 AM [facility] Potassium 4.7(H) 3.5 - 4.5 mmol/L 03/23/2018 4:08 AM [facility] Chloride 98 98 - 107 mmol/L 03/23/2018 4:08 AM [facility] CO2 26 22 - 29 mmol/L 03/23/2018 4:08 AM [facility] Glucose 159(H) 70 - 115 mg/dL 03/23/2018 4:08 AM [facility] Calcium 8.6 8.4 - 10.2 mg/dL 03/23/2018 4:08 AM [facility] Anion Gap 13 8 - 18 03/23/2018 4:08 AM [facility] BUN/Creatinine Ratio 12 7 - 23 03/23/2018 4:08 AM [facility] Osmolality Calculated 283 270 - 300 mOsm/kg 03/23/2018 4:08 AM [facility] eGFR 27(L) >60 mL/min/1.7 3 m2 03/23/2018 4:08 AM [facility] Blood BLOOD SPECIMEN / Unknown Lab Venipuncture / Unknown 03/23/2018 2:54 AM [employer] 03/23/2018 3:35 AM [facility] Connie Olvera MD LAB - CHEMISTR Y ORDERABLES [address] [phone] * MAGNESIUM BLOOD (03/23/2018 2:54 AM [employer]) Only the most recent of2 resultswithin the time period is included. Magnesium 1.8 1.6 - 2.6 mg/dL 03/23/2018 4:08 AM [facility] Blood BLOOD SPECIMEN / Unknown Lab Venipuncture / Unknown 03/23/2018 2:54 AM [employer] 03/23/2018 3:35 AM [employer] Connie Olvera MD LAB - CHEMISTR Y ORDERABLES Performing Organization Address City/State/[facility] Co de Phone Number [address] [phone] * (ABNORMAL) CBC W/O DIFFERENTIAL (03/22/2018 4:22 AM [employer]) WBC 7.1 3.5 - 10.5 10 3/uL 03/22/2018 4:42 AM [facility] RBC 2.97(L) 4.30 - 5.70 10 6/uL 03/22/2018 4:42 AM [facility] Hemoglobin 9.0(L) 13.5 - 17.5 g/dL 03/22/2018 4:42 AM [facility] Hematocrit 27.7(L) 39.0 - 50.0 % 03/22/2018 4:42 AM [facility] MCV 93.3 81.0 - 97.0 fL 03/22/2018 4:42 AM [facility] MCH 30.3 28.0 - 34.0 pg 03/22/2018 4:42 AM [facility] MCHC 32.5 32.0 - 36.0 g/dL 03/22/2018 4:42 AM [facility] Platelet Count 162 150 - 400 10 3/uL 03/22/2018 4:42 AM [facility] RDW-SD 46.1 36.0 - 50.0 fL 03/22/2018 4:42 AM [facility] RDW-CV 13.5 11.2 - 14.8 % 03/22/2018 4:42 AM [facility] MPV 9.6 9.3 - 12.8 fL 03/22/2018 4:42 AM [facility] nRBC Absolute 0.00 0 10 3/uL 03/22/2018 4:42 AM [facility] nRBC Auto 0.0 0 /100 WBC 03/22/2018 4:42 AM [facility] Blood BLOOD SPECIMEN / Unknown Lab Venipuncture / Unknown 03/22/2018 4:22 AM [employer] 03/22/2018 4:29 AM [employer] Orin Villanueva MD LAB - HEMATOLOGY ORD ERABLES [address] [phone] * PHOSPHORUS BLOOD (03/22/2018 4:22 AM [employer]) Phosphorus 3.5 2.3 - 4.7 mg/dL 03/22/2018 4:56 AM [facility] Blood BLOOD SPECIMEN / Unknown Lab Venipuncture / Unknown 03/22/2018 4:22 AM [employer] 03/22/2018 4:29 AM [employer] Orin Villanueva MD LAB - CHEMISTRY ORDE RABLES Performing Organization Address City/[facility]/ZIP Co de Phone Number [address] [phone] * (ABNORMAL) HEMOGLOBIN A1C (03/21/2018 4:17 AM [employer]) Hemoglobin A1c 6.5(H) 4.4 - 6.3 % 03/21/2018 7:32 AM [facility] Estimated Average Glucose 140 mg/dL 03/21/2018 7:32 AM [facility] Comment: HbA1c Interpretation: Treatment target values recommended by ADA and other clinical organizations should be used to evaluate metabolic control in patients. Treatment Target Values: Normal : < 5.7% Pre-diabetes: 5.7-6.4% Diabetes: Equal to or greater than 6.5% Reference: [place] [employer] Standards of Care in Diabetes -2014 In patients 70 years and older consider HbA1c target range of 7.0-7.5% Reference: Diabetes Mellitus in Older People: Position Statement on behalf of the International Association of Gerontology and Geriatrics (IAGG), the Diabetes Working Constitution Party for Older People (EDWPOP), and the International Task Force of Experts in Diabetes. Jag Puckett, et al. J [place] [employer]. 2012 Test results diagnostic of diabetes should be repeated for confirmation. The Tosoh G8 assay for the measurement of HbA1c is a National Glycohemoglobin Standardization Program (NGSP)certified method. Results for patients with HbE disease should be interpreted with caution as this hemoglobinopathy has been shown to interfere with the Tosoh G8 assay. Blood BLOOD SPECIMEN / Unknown Lab Venipuncture / Unknown 03/21/2018 4:17 AM [employer] 03/21/2018 4:17 AM [employer] Von Diop MD LAB - CHEMISTRY VERA FLYNN Performing Organization Address [facility] Co de Phone Number [address] [phone] * EKG 12-LEAD (03/20/2018 6:38 AM [employer]) Pathologist [facility] Ventricular Rate 69 BPM [facility] Atrial Rate 69 BPM [facility] MUSE P-R Interval 244 ms [facility] MUSE QRS Duration ms 78 ms H MUSE Q-T Interval ms 448 ms [facility] MUSE QTC Calculation (Bezet) 480 ms [facility] MUSE Calculated P [place] 91 degrees [facility] Calculated R [place] 22 degrees [facility] Calculated T [place] 78 degrees [facility] M[facility] Interpretation EKG SINUS RHYTHM WITH 1ST DEGREE A-V BLOCK PROLONGED QT ABNORMAL ECG NO PREVIOUS ECGS AVAILABLE Confirmed by Karol CANNON, XU ([id number]), supervising film or videotape editor ABA XIONG [id number]) on 04/06/2018 2:22:18 PM [facility] MUSE 03/20/2018 6:38 AM [employer] 04/06/2018 2:22 PM [employer] Von Diop MD ECG ORDERABLES Performing Organization Address [facility] Co de Phone Number [facility] MUSE * (ABNORMAL) COMPREHENSIVE METABOLIC PANEL (03/20/2018 3:43 AM [employer]) Pathologist [facility] BUN 24 7 - 26 mg/dL 03/20/2018 4:04 AM [employer] [facility] Creatinine 2.7(H) 0.6 - 1.2 mg/dL 03/20/2018 4:04 AM [facility] Sodium 141 136 - 145 mmol/L 03/20/2018 4:04 AM [facility] Potassium 4.0 3.5 - 4.5 mmol/L 03/20/2018 4:04 AM [facility] Chloride 107 98 - 107 mmol/L 03/20/2018 4:04 AM [facility] CO2 21(L) 22 - 29 mmol/L 03/20/2018 4:04 AM [facility] Glucose 149(H) 70 - 115 mg/dL 03/20/2018 4:04 AM [facility] Calcium 8.2(L) 8.4 - 10.2 mg/dL 03/20/2018 4:04 AM [facility] Protein Total 5.8(L) 6.0 - 8.3 g/dL 03/20/2018 4:04 AM [facility] Albumin 3.2(L) 3.4 - 5.0 g/dL 03/20/2018 4:04 AM [facility] Bilirubin Total 0.4 0.2 - 1.2 mg/dL 03/20/2018 4:04 AM [facility] Alkaline Phosphatase 83 40 - 150 Units/L 03/20/2018 4:04 AM [facility] ALT 17 0 - 55 Units/L 03/20/2018 4:04 AM [facility] AST 21 5 - 34 Units/L 03/20/2018 4:04 AM [facility] Anion Gap 17 8 - 18 03/20/2018 4:04 AM [facility] BUN/Creatinine Ratio 9 7 - 23 03/20/2018 4:04 AM [facility] Osmolality Calculated 299 270 - 300 mOsm/kg 03/20/2018 4:04 AM [facility] Albumin/Globulin Ratio 1.2 1.1 - 2.3 03/20/2018 4:04 AM [facility] eGFR 23(L) >60 mL/min/1.7 3 m2 03/20/2018 4:04 AM [facility] Blood BLOOD SPECIMEN / Unknown Venipuncture / Unknown 03/20/2018 3:43 AM [employer] 03/20/2018 3:43 AM [employer] Von Diop MD LAB - CHEMISTRY ORDAdair FLYNN Performing Organization Address [facility] Co de Phone Number [address] [phone] * (ABNORMAL) TSH (03/20/2018 3:43 AM [employer]) TSH 13.000(H) 0.350 - 4.940 uIU/mL 03/20/2018 5:10 AM [facility] Blood BLOOD SPECIMEN / Unknown Venipuncture / Unknown 03/20/2018 3:43 AM [employer] 03/20/2018 3:43 AM [employer] Stef Viera MD LAB - CHEMISTRY VERA FLYNN Performing Organization Address [facility] de Phone Number [address] [phone] * T4 FREE (03/20/2018 3:43 AM [employer]) T4 Free 0.9 0.7 - 1.5 ng/dL 03/20/2018 5:42 AM [facility] Blood BLOOD SPECIMEN / Unknown Venipuncture / Unknown 03/20/2018 3:43 AM [employer] 03/20/2018 3:43 AM [employer] Stef Viera MD LAB - CHEMISTRY VERA FLYNN Performing Organization Address [facility] [place] [place] [address], [facility] [phone] * (ABNORMAL) CBC W AUTO DIFFERENTIAL (03/20/2018 3:42 AM [employer]) WBC 8.9 3.5 - 10.5 10 3/uL 03/20/2018 3:47 AM [facility] RBC 3.21(L) 4.30 - 5.70 10 6/uL 03/20/2018 3:47 AM [facility] Hemoglobin 9.7(L) 13.5 - 17.5 g/dL 03/20/2018 3:47 AM [facility] Hematocrit 30.1(L) 39.0 - 50.0 % 03/20/2018 3:47 AM [facility] MCV 93.8 81.0 - 97.0 fL 03/20/2018 3:47 AM [facility] MCH 30.2 28.0 - 34.0 pg 03/20/2018 3:47 AM [facility] MCHC 32.2 32.0 - 36.0 g/dL 03/20/2018 3:47 AM [facility] Platelet Count 205 150 - 400 10 3/uL 03/20/2018 3:47 AM [facility] RDW-SD 47.2 36.0 - 50.0 fL 03/20/2018 3:47 AM [facility] RDW-CV 13.9 11.2 - 14.8 % 03/20/2018 3:47 AM [facility] MPV 9.4 9.3 - 12.8 fL 03/20/2018 3:47 AM [facility] nRBC Absolute 0.00 0 10 3/uL 03/20/2018 3:47 AM [facility] nRBC Auto 0.0 0 /100 WBC 03/20/2018 3:47 AM [facility] Neutrophils % 68.8 35.0 - 70.0 % 03/20/2018 3:47 AM [facility] Lymphocytes % 19.3(L) 19.7 - 55.1 % 03/20/2018 3:47 AM [facility] Monocytes % 9.5 3.0 - 15.0 % 03/20/2018 3:47 AM [facility] Eosinophils % 1.8 0.0 - 6.0 % 03/20/2018 3:47 AM [facility] Basophil % 0.4 0.0 - 1.5 % 03/20/2018 3:47 AM [facility] Neutrophils Absolute 6.1 1.6 - 7.0 10 3/uL 03/20/2018 3:47 AM [facility] Lymphocyte Absolute 1.7 0.8 - 2.9 10 3/uL 03/20/2018 3:47 AM [facility] Monocytes Absolute 0.85(H) 0.14 - 0.66 10 3/uL 03/20/2018 3:47 AM [facility] Eosinophils Absolute 0.16 0.00 - 0.45 10 3/uL 03/20/2018 3:47 AM [facility] Basophils Absolute 0.04 0.00 - 0.06 10 3/uL 03/20/2018 3:47 AM [facility] Immature Granulocytes % 0.2 0.0 - 1.0 % 03/20/2018 3:47 AM [facility] Blood BLOOD SPECIMEN / Unknown Venipuncture / Unknown 03/20/2018 3:42 AM [employer] 03/20/2018 3:42 AM [employer] Von Diop MD LAB - HEMATOLOGY ORD ERABLES [address] [phone] * CT CERVICAL SPINE WO CONTRAST (03/20/2018 2:20 AM [employer]) Anatomical Region Laterality Modality Spine Computed Tomogra phy 03/20/2018 2:42 AM [employer] Impressions 03/20/2018 10:54 AM [employer] IMPRESSION: 1. No acute intracranial process. Encephalomalacia in the right occipital lobe. 2. No evidence of acute fracture in the cervical spine. 3. 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 Report dictated by Isaac Lopes MD (residential life director). I, Dr. LISA HENRY M.D. have personally reviewed and interpreted this examination/study. This report was electronically signed by LISA HENRY M.D. on 03/20/2018 10:54 AM . Narrative 03/20/2018 10:54 AM [employer] EXAMINATION: 1. Computed tomography (CT) of the head without contrast 2. CT of the cervical spine without contrast HISTORY: fall TECHNIQUE: CT of the head and cervical spine were performed without contrast according to standard protocol. FINDINGS: No prior study is available for comparison at the time of this dictation.33 Head: No acute intra- or extra-axial fluid collections are identified. The ventricles are of normal size, shape, and morphology. The basilar cisterns are patent. No mass effect or midline shift is seen. 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 Periventricular white matter hypoattenuation is indicative of chronic small vessel ischemic disease. There is vascular calcification of the carotid siphons. The visualized portions of the orbits, paranasal sinuses, and mastoids appear normal. No acute fracture is identified. Cervical spine: There is 3 mm anterolisthesis of C7 on T1. Noninstrumented fusion of the C6 and C7 vertebral bodies and posterior elements are noted, likely congenital. No acute fracture is seen in the cervical spine. Other than middle atlantoaxial joint osteoarthritis, the craniocervical junction appears normal. There is advanced degenerative disc disease. Moderate C3-4, mild C4-5, mild C5-6 central canal stenosis is seen. There are varying degrees of advanced facet osteoarthritis. There are varying degrees of advanced uncovertebral joint osteoarthritis with the same degree of neural foraminal stenosis at these levels. There is atherosclerotic calcification of the carotid bifurcations. Procedure Note Lisa Henry MD - 03/20/2018 EXAMINATION: 1. Computed tomography (CT) of the head without contrast 2. CT of the cervical spine without contrast HISTORY: fall TECHNIQUE: CT of the head and cervical spine were performed without contrast according to standard protocol. FINDINGS: No prior study is available for comparison at the time of this dictation.33 Head: No acute intra- or extra-axial fluid collections are identified. The ventricles are of normal size, shape, and morphology. The basilarcisterns are patent. No mass effect or midline shift is seen. 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 Periventricular white matter hypoattenuation is indicative of chronic small vessel ischemic disease. There is vascular calcificationof the carotid siphons. The visualized portions of the orbits, paranasal sinuses, and mastoids appear normal. No acute fracture is identified. Cervical spine: There is 3 mm anterolisthesis of C7 on T1. Noninstrumented fusion of the C6 and C7 vertebral bodies and posterior elements are noted, likely congenital. No acute fracture is seen in the cervical spine. Other than middle atlantoaxial joint osteoarthritis, the craniocervical junction appears normal. There is advanced degenerative disc disease. Moderate C3-4, mild C4-5, mild C5-6 central canal stenosis is seen. There are varying degrees of advanced facet osteoarthritis. There are varying degrees of advanced uncovertebral joint osteoarthritis with the same degree of neural foraminal stenosis at these levels. There is atherosclerotic calcification of the carotid bifurcations. IMPRESSION: 1. No acute intracranial process. Encephalomalacia in the rightoccipital lobe. 2. No evidence of acute fracture in the cervical spine. 3. Advanced multilevel degenerative disc and joint disease in thecervical spine with moderate C3-4, C4-5, and C5-6 central canal stenosis and multilevel neuroforaminal stenosis. Report dictated by Isaac Lopes MD (residential life director). Dr. LISA Arnold M.D. have personally reviewed and interpreted this examination/study. This report was electronically signed by LISA HENRY M.D. on 03/20/2018 10:54 AM . Von Diop MD CT ORDERABLES * CT HEAD WO CONTRAST (03/20/2018 2:20 AM PARACHUTE/COMBATANT DIVER OFFICER) Anatomical Region Laterality Modality Head Computed Tomogra phy 03/20/2018 2:42 AM PARACHUTE/COMBATANT DIVER OFFICER Impressions 03/20/2018 10:54 AM PARACHUTE/COMBATANT DIVER OFFICER IMPRESSION: 1. No acute intracranial process. Encephalomalacia in the right occipital lobe. 2. No evidence of acute fracture in the cervical spine. 3. 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 Report dictated by Isaac Lopes MD (residential life director). Dr. LISA Arnold M.D. have personally reviewed and interpreted this examination/study. This report was electronically signed by LISA HENRY M.D. on 03/20/2018 10:54 AM . Narrative 03/20/2018 10:54 AM PARACHUTE/COMBATANT DIVER OFFICER EXAMINATION: 1. Computed tomography (CT) of the head without contrast 2. CT of the cervical spine without contrast HISTORY: fall TECHNIQUE: CT of the head and cervical spine were performed without contrast according to standard protocol. FINDINGS: No prior study is available for comparison at the time of this dictation.33 Head: No acute intra- or extra-axial fluid collections are identified. The ventricles are of normal size, shape, and morphology. The basilar cisterns are patent. No mass effect or midline shift is seen. 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 Periventricular white matter hypoattenuation is indicative of chronic small vessel ischemic disease. There is vascular calcification of the carotid siphons. The visualized portions of the orbits, paranasal sinuses, and mastoids appear normal. No acute fracture is identified. Cervical spine: There is 3 mm anterolisthesis of C7 on T1. Noninstrumented fusion of the C6 and C7 vertebral bodies and posterior elements are noted, likely congenital. No acute fracture is seen in the cervical spine. Other than middle atlantoaxial joint osteoarthritis, the craniocervical junction appears normal. There is advanced degenerative disc disease. Moderate C3-4, mild C4-5, mild C5-6 central canal stenosis is seen. There are varying degrees of advanced facet osteoarthritis. There are varying degrees of advanced uncovertebral joint osteoarthritis with the same degree of neural foraminal stenosis at these levels. There is atherosclerotic calcification of the carotid bifurcations. Procedure Note Lisa Henry MD - 03/20/2018 EXAMINATION: 1. Computed tomography (CT) of the head without contrast 2. CT of the cervical spine without contrast HISTORY: fall TECHNIQUE: CT of the head and cervical spine were performed without contrast according to standard protocol. FINDINGS: No prior study is available for comparison at the time of this dictation.33 Head: No acute intra- or extra-axial fluid collections are identified. The ventricles are of normal size, shape, and morphology. The basilarcisterns are patent. No mass effect or midline shift is seen. 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 Periventricular white matter hypoattenuation is indicative of chronic small vessel ischemic disease. There is vascular calcificationof the carotid siphons. The visualized portions of the orbits, paranasal sinuses, and mastoids appear normal. No acute fracture is identified. Cervical spine: There is 3 mm anterolisthesis of C7 on T1. Noninstrumented fusion of the C6 and C7 vertebral bodies and posterior elements are noted, likely congenital. No acute fracture is seen in the cervical spine. Other than middle atlantoaxial joint osteoarthritis, the craniocervical junction appears normal. There is advanced degenerative disc disease. Moderate C3-4, mild C4-5, mild C5-6 central canal stenosis is seen. There are varying degrees of advanced facet osteoarthritis. There are varying degrees of advanced uncovertebral joint osteoarthritis with the same degree of neural foraminal stenosis at these levels. There is atherosclerotic calcification of the carotid bifurcations. IMPRESSION: 1. No acute intracranial process. Encephalomalacia in the rightoccipital lobe. 2. No evidence of acute fracture in the cervical spine. 3. Advanced multilevel degenerative disc and joint disease in thecervical spine with moderate C3-4, C4-5, and C5-6 central canal stenosis and multilevel neuroforaminal stenosis. Report dictated by Isaac Lopes MD (residential life director). I, Dr. LISA HENRY M.D. have personally reviewed and interpreted this examination/study. This report was electronically signed by LISA HENRY M.D. on 03/20/2018 10:54 AM . Von Diop MD CT ORDERABLES Care Teams Zinc Miner Relationship Specialty Start Date End Date Keyon Crocker MD [address] [id number] PCP - General Internal Medicine 03/19/18 [place] [id number] [address] [place] [address] PCP - Strive [facility] 01/01/24 Care, [facility] Kidney Care Management 07/30/21
--- OUTSIDE RECORDS SUMMARY | 2024-05-05 14:12 | XMS_ITS | Clinical Summary ---
Author Organization [facility] Address [address] [place] [address] Care Team Providers Care Cylinder Filler Name Role Phone Keyon Crocker MD Primary Care Provider Care, [facility] Kidney Unavailable [phone] Aguilar Garcia MD Unavailable [phone] Source Comments [facility],non-owned Affiliates and Associated Physician Practices is amultiple site organization consisting of ambulatory clinics and hospital sitesin [place], [place], [place] and [place]. This disclosure is being madepursuant to the Care Everywhere program and may not contain all information available regarding this patient. Last updated 17.[facility] Allergies No known active allergies Medications * Be aware that medications may not be up to date on this document. Alwaysverify current medications with the patient. Medication Sig Dispensed Refills Start Date End Date Status aspirin (ASPIRIN) 81 MG chew tablet Take 81 mg by mouth once daily Active atorvastatin (LIPITOR) 40 MG tablet Take 40 mg by mouth at bedtime Active calcitriol (ROCALTROL) 0.25 MCG capsule Take 0.25 mcg by mouth once daily Active vitamin D, ergocalciferol, (DRISDOL) 50116 UNITS capsule Take 50,000 Units by mouth every 7 days Active folic acid (FOLVITE) 1 MG tablet Take 1 mg by mouth once daily Active phenytoin ER (PHENYTEK) 200 MG capsule Take by mouth 2 times daily 200 mg q AM 300 mg q PM Active LOSARTAN POTASSIUM PO Take 50 mg by mouth once daily Active insulin glargine (LANTUS) vial Inject 20 Units subcutaneously once daily as needed Active ferrous sulfate 325 (65 FE) MG tablet Take 325 mg by mouth 2 times daily with morning and evening meal Active lansoprazole (PREVACID) 30 MG capsule Take 30 mg by mouth daily before breakfast Active cyanocobalamin, vitamin B-12, 2500 MCG tablet Dissolve 2,500 mcg under the tongue every 30 days Active docusate sodium (COLACE) 100 MG capsule Take 100 mg by mouth 2 times daily Active sodium bicarbonate 650 MG tablet Take 650 mg by mouth 2 times daily Active polyethylene glycol 3350 (MIRALAX) packet Take 17 g by mouth once daily 03/24/2018 Active amiodarone (CORDARONE) 200 MG tablet Take 1 tablet by mouth once daily 03/24/2018 Active ondansetron (ZOFRAN) 4 MG tablet Take 1 tablet by mouth every 6 hours as needed for Nausea/Vomiting 10 tablet 03/23/2018 Active oxyCODONE-acetamin ophen (PERCOCET) 5-325 MG tablet Take 1 tablet by mouth every 6 hours as needed 30 tablet 03/23/2018 Active lisinopril (PRINIVIL; ZESTRIL) 40 MG tablet 12/22/2017 Active losartan (COZAAR) 50 MG tablet TK 1 T PO QD 0 03/23/2018 Active phenytoin ER (DILANTIN) 100 MG capsule 03/03/2018 Active furosemide (LASIX) 20 MG tablet Take by mouth once daily 2 06/16/2018 Active Aspirin (ASPIR-LOW) 81 MG qd Active Glucose Blood (COOL BLOOD GLUCOSE TEST STRIPS ) Dx: E11.9. Tests sugars 3 times daily, One Touch Ultra Mini Active Active Problems Problem Noted Date Diagnosed [...] Comments Blood Pressure 169/86 04/07/2018 2:03 PM BUSINESS CONTINUITY PLANNING DIRECTOR Pulse 69 04/07/2018 2:03 PM BUSINESS CONTINUITY PLANNING DIRECTOR Temperature 36.1 C (96.9 F) 03/23/2018 4:31 PM BUSINESS CONTINUITY PLANNING DIRECTOR Respiratory Rate 18 03/23/2018 4:31 PM BUSINESS CONTINUITY PLANNING DIRECTOR Oxygen Saturation 94% 03/23/2018 4:31 PM BUSINESS CONTINUITY PLANNING DIRECTOR Inhaled Oxygen Concentration - - Weight 62.6 kg (138 lb) 10/05/2018 10:22 AM CDT Height 160 cm (5' 3 ) 10/05/2018 10:22 AM CDT Body Mass Index 24.45 10/05/2018 10:22 AM CDT Plan of Treatment Health Maintenance Due Date Last Done Comments MEDICARE AWV 12 MONTHS 1935 DTAP/TDAP/TD VACCINES (1 - Tdap) 06/04/1954 PNEUMOCOCCAL VACCINE 50+ (1 of 1 - PCV) 06/04/1985 ZOSTER VACCINE (1 of 2) 06/04/1985 Respiratory Syncytial Virus (RSV) Vaccine Pt: or over 60 yrs (1 - 1-dose 75+ series) 06/04/2010 COVID-19 VACCINE ( - 2023-2 5 season) 2023 INFLUENZA VACCINE (#1) 2023 12/15/2017 DEPRESSION SCREENING 03/02/2024 HEPATITIS B VACCINE Aged Out No longe r eligible based on patient's age to complete this topic HIB VACCINE Aged Out No longer eligi ble based on patient's age to complete this topic HPV VACCINE Aged Out No longer eligi ble based on patient's age to complete this topic MENINGOCOCCAL (Group B) VACCINE Aged Out No longer eligible based on patient's age to complete this topic MENINGOCOCCAL VACCINE Aged Out No anthony tootie eligible based on patient's age to complete this topic Advance Directives * DNR - IF PULSELESS NO CPR, NO SHOCK (Latest Code Status on File) Date Activated Date Inactivated Comments 03/20/2018 4:37 AM 03/23/2018 6:28 PM Question Answer Comments : DO NOT discontinue a ny active orders without asking attending physician. * DNR - IF PULSELESS NO CPR, NO SHOCK Date Activated Date Inactivated Comments 03/20/2018 4:23 AM 03/20/2018 4:23 AM Question Answer Comments : DO NOT discontinue a ny active orders without asking attending physician. Care Teams Cylinder Filler Relationship Specialty Start Date End Date Keyon Crocker MD [address] [facility] [address] [place] [phone] PCP - General Internal Medicine 03/19/18 [place] [address] [place] [address] PCP - Strive [facility] 01/01/24 Care, [facility] Kidney Care Management 07/30/21
--- OUTSIDE RECORDS SUMMARY | 2024-05-05 14:12 | XMS_ITS | Clinical Summary ---
Author Organization [facility] Address [address] [place] [address] Phone Care Team Providers Care Plumbing Technician Name Role Phone Keyon Crocker MD Primary Care Provider Active Problems Problem Noted Date Diagnosed Date Senile osteoporosis Social History Tobacco Use Types Packs/Day Years Used Date Smoking Tobacco: Never Assessed Sex and Gender Information Value Date Recorded Sex Assigned at Not on file Legal Sex Male 10:56 AM CDT Gender Identity Not on file Sexual Orientation Not on file Last Filed Vital Signs Vital Sign Reading Time Taken Comments Blood Pressure 125/76 11/03/2023 10:44 AM CDT Pulse 61 11/03/2023 10:44 AM CDT Temperature 36.5 C (97.7 F) 11/03/2023 10:44 AM CDT Respiratory Rate 16 11/03/2023 10:44 AM CDT Oxygen Saturation 100% 04/30/2023 3:00 PM SECOND HELPER Inhaled Oxygen Concentration - - Weight - - Height - - Body Mass Index - - Plan of Treatment Health Maintenance Due Date Last Done Comments Hepatitis C Virus (HCV) Screening 1935 Influenza Immunization (#1) 11/01/202312/01, 12/26/2021, 02/11/2021, Additional history exists SARS-COV-2 Immunization ( season) 2023 01/06/2023, 12/26/2021, 04/23/2021, Additional history exists Pneumococcal Immunization (50+ years) Completed 02/05/2017, 02/06/2016 Zoster Immunization Completed 05/03/2019, 9 DTaP/Tdap/Td Immunization Discontinued 01/06/2023 Respiratory Syncytial Virus (RSV) Immunization (Adult) Completed 01/06/2023 TdaP Immunization Completed 01/06/2023 Hepatitis B Immunization Aged Out No longer eligible based on patient's age to complete this topic Meningococcal Immunization (ACWY) Aged Out No longer eligible based on patient's age to complete this topic Rotavirus Immunization Aged Out No lo nger eligible based on patient's age to complete this topic Insurance [facility]ICARE [facility] Care Teams Plumbing Technician Relationship Specialty Start Date End Date Keyon Crocker MD [address] [place] [address] PCP - General Internal Medicine 07/17/21
--- OUTSIDE RECORDS SUMMARY | 2024-05-05 14:12 | XMS_ITS | Encounter Summary ---
Author Organization [facility] [employer] [facility] Address [address] [place] [address] Care Team Providers Care Ambulance Operations Supervisor Name Role Phone Keyon Crocker MD Primary Care Provider Reason for Visit * Reason Comments Follow Up Encounter Details Date Type Department Care Team (Late st Contact Info) Description 05/05/2024 1:00 PM RECREATION SPECIALIST Office Visit [facility] Oncology and Hematology - [place] [address] [place] [address] Jung Arvizu MD [address] [facility] [address] [address] [place] [address] Anemia of chronic kidney failure, stage 4 (severe) (CMS/HCC) (Primary Dx) Social History Tobacco Use Types Packs/Day Years Used Date Smoking Tobacco: Former Cigarettes 2 30 0 06/01/1944 - 06/01/1974 Smokeless Tobacco: Never Tobacco Cessation:Counseling Given: Not Answered Alcohol Use Standard Drinks/Week Comments Yes 0 (1 standard drink = 0.6 oz pur e alcohol) Sex and Gender Information Value Date Recorded Sex Assigned at Not on file Legal Sex Male 12:03 PM RECREATION SPECIALIST Gender Identity Not on file Sexual Orientation Not on file documented as of this encounter Last Filed Vital Signs Vital Sign Reading Time Taken Comments Blood Pressure 138/71 05/05/2024 1:17 PM RECREATION SPECIALIST Pulse 66 05/05/2024 1:14 PM RECREATION SPECIALIST Temperature 36.6 C (97.8 F) 05/05/2024 1:14 PM RECREATION SPECIALIST Respiratory Rate 15 05/05/2024 1:14 PM RECREATION SPECIALIST Oxygen Saturation 95% 05/05/2024 1:14 PM RECREATION SPECIALIST Inhaled Oxygen Concentration - - Weight 62.1 kg (137 lb) 05/05/2024 1:14 PM RECREATION SPECIALIST Height - - Body Mass Index 24.27 09/12/2021 1:09 PM CDT documented in this encounter Progress Notes * Jung Arvizu MD - 05/05/2024 2:05 PM CST HEMATOLOGY / ONCOLOGY PROGRESS NOTE Patient Identification: Name: Jareth Peterson Age: 88 y.o. Sex: male : 1935 DIAGNOSIS Anemia of chronic stage IV disease CURRENT TREATMENT Procrit every 3 months basis TREATMENT HISTORY Procrit treatment started August 27, 2018 SUBJECTIVE Patient came to the office for follow-up visit. He denies any excessive tiredness and fatigue. Denies any chest pain and shortness of breath. No bleeding and bruising. Weight and appetite stable. No other new complaints.. Review of system Constitutional: denies fevers, sweats, weight and appetite stable, denies any tiredness and fatigue HEENT: denies sinus congestion, hearing or vision problems Respiratory: denies cough, dyspnea, wheeze Cardiovascular: denies chest pain, exertional chest pressure/discomfort, nausea, syncope, shortnessof breath GI: denies constipation, diarrhea, dsyphagia, reflux symptoms, vomiting, melena : denies dysuria, frequency, incontinence, urgency Integumentary system: no lymphadenopathy, sweats, flushing Musculoskeletal: denies: myalgia, arthralgia Neurological: denies blurry or disturbed vision, numbness/weakness, dizziness Skin: No lumps, bumps or rashes. 12 point review of system was reviewed Objective: Vital signs in last 24 hours: As per nursing note Exam: General appearance: alert, cooperative, no distress, appears stated age Head: normocephalic, without obvious abnormality, atraumatic Eyes: conjunctivae/corneas clear, EOM's intact Ears: normal external ear canals AU Nose: Nares normal. Septum midline. Mucosa normal. No drainage or sinus tenderness Throat: Lips, mucosa, and tongue normal. Teeth and gums normal Neck: supple, symmetrical, trachea midline. Lungs: clear to auscultation bilaterally Heart: regular rate and rhythm, S1, S2 normal, no murmur, click, rub or gallop Abdomen: soft, non-tender. Bowel sounds normal. No masses, No organomegaly Extremities: extremities normal, atraumatic, no cyanosis or edema Skin: Skin color, texture, turgor normal. No rashes or lesions Lymph nodes: No lymphadenopathy Neuro: No obvious focal deficit Exam as above PATH LABS Labs from January 13, 2019 showed WBC 7.7 hemoglobin 11.2 platelet 230,000 creatinine 2.8 Labs from April 29 showed WBC 6.4 hemoglobin 10 platelet 250,000 Labs from July 13 showed WBC 5.5 hemoglobin 11 platelet 158,000. Labs from November 02 showed hemoglobin 10.3 Labs from February 01 showed hemoglobin 10.9 creatinine 2.7 Labs from showed WBC 7.4 hemoglobin 10.2 platelet 178,000 creatinine 2.6 Labs from October 30 showed WBC 5.6 hemoglobin 10.7 platelet 173,000 creatinine 2.8 Labs from April 25 showed WBC 4.8 hemoglobin 9.9 platelet 210,000 creatinine 2.2 Labs from September 12 showed WBC 6.1 hemoglobin 10.5 platelet 187,000 creatinine 1.9 Labs from August 14 showed WBC 6.0 hemoglobin 10.8 platelet 186,000 creatinine 2.4 Labs from December 15 showed hemoglobin 11.9 WBC 5.3 platelet 185,000 Labs from May 05 showed WBC 8 hemoglobin 10.5 platelet 150,000 creatinine 1.79 GFR 36 iron 79 saturation 42% ferritin 115 Assessment: Plan: Patient Active Problem List Diagnosis Date Noted Colostomy status ([facility]) 04/21/2019 Ulcerative colitis without complications ([facility]) 04/21/2019 Type 2 diabetes mellitus with diabetic chronic kidney disease ([facility]) 04/21/2019 Anemia of chronic renal failure, stage 4 (severe) ([facility]) 01/13/2019 Anemia of chronic kidney stage IV disease. Labs noted. Hemoglobin declined slightly. He is asymptomatic. No need for Procrit injection. He will continue oral iron once a day. Follow-up in 6 months. CKD stage IV disease. Creatinine has improved. He will follow-up with the buttermaker. History of ulcerative colitis status post colectomy and colostomy placement. Stable. Coronary artery disease status post coronary artery bypass grafting. Asymptomatic on aspirin. Type 2 diabetes. This has been managed by the primary care physician. Follow-up in 6 months. 05/05/2024 Jung Arvizu MD EATION SPECIALIST documented in this encounter Plan of Treatment Upcoming Encounters Date Type Department Care Team (Late st Contact Info) Description 11/16/2024 1:00 PM CDT Office Visit [facility] Oncology and Hematology [facility] [address] [facility] [address] [place] [phone] Jung Arvizu MD [address] [facility] [address] [place] [address] Scheduled Orders Name Type Priority Associated Diagnoses Orde r Schedule CBC WITHOUT DIFFERENTIAL Lab Stat Anemia of chronic kidney failure, stage 4 (severe) (CMS/HCC) Expected: 11/05/2024, Expires: 05/05/2025 BASIC METABOLIC PANEL Lab Stat Anemia of chronic kidney failure, stage 4 (severe) (CMS/HCC) Expected: 11/05/2024, Expires: 05/05/2025 documented as of this encounter Visit Diagnoses Diagnosis Anemia of chronic kidney failure, stage 4 (severe) (CMS/HCC)- Primary documented in this encounter Care Teams Ambulance Operations Supervisor Relationship Specialty Start Date End Date Keyon Crocker MD PCP - General Internal Medicine 03/09/18 documented as of this encounter
--- OUTSIDE RECORDS SUMMARY | 2024-05-05 14:12 | XMS_ITS | CONTINUITY OF CARE DOCUMENT ---
Author Name jory, jory Address Unknown Organization [facility] Address [address] [address] [place] [address] Phone [phone] Care Team Providers Care Padded Products Finisher Name Role Phone Sen KUMAR, Jose Unavailable SHINE KUMAR, BERTHA Unavailable [phone] BERTHA RIOJAS MD Unavailable [phone] PROBLEMS Condition Status Date Provider Notes Acute sinusitis active Manisha Villaseñor Anemia, iron deficiency active JEOVANNY VARMA MD Anemia, B12 deficiency active JEOVANNY VARMA MD Long-Term Medications-High Risk active Paulina Corea Coronary atherosclerosis of [place] coronary artery active JEOVANNY VARMA MD Hyperlipidemia active Manisha Villaseñor Acute upper respiratory infections of unspecified site completed - JEOVANNY VARMA MD Coronary Heart Disease active ? Jose Chatterjee MD Hypertension active ? Jose Chatterjee MD CVA active Jose Chatterjee MD Edema active Jose Chatterjee MD C A B G: active ? Jose Chatterjee MD (Status post) Diabetes, Type 2 active ? Jose Chatterjee MD Calculus of kidney active JEOVANNY VARMA MD Gout active JEOVANNY VARMA MD Hemiplegia, unspecified active JEOVANNY VARMA MD LEFT ENCOUNTERS Date Type Provider Location Encounter Diag nosis - In-person encounter Office Visit Jose Chatterjee MD [facility] - In-person encounter Office Visit Jose Chatterjee MD [facility] - In-person encounter Office Visit Jose Chatterjee MD [facility] - In-person encounter Office Visit Jose Chatterjee MD [facility] - In-person encounter Office Visit Jose Chatterjee MD [facility] - In-person encounter Office Visit Jose Chatterjee MD [facility] - In-person encounter Office Visit Jose Chatterjee MD [facility] - In-person encounter Office Visit Jose Chatterjee MD [facility] CVA - In-person encounter Office Visit Jose Chatterjee MD [facility] - In-person encounter Office Visit Jose Chatterjee MD [facility] - In-person encounter Office Visit Jose Chatterjee MD [facility] Edema - In-person encounter Office Visit Jose Chatterjee MD [facility] Coronary Heart DiseaseDiabetes, Type 2HypertensionC A B - In-person encounter Office Visit JEOVANNY VARMA MD [facility] - In-person encounter Office Visit JEOVANNY VARMA MD [facility] - In-person encounter Office Visit JEOVANNY VARMA MD [facility] - In-person encounter Office Visit JEOVANNY VARMA MD [facility] - In-person encounter Office Visit JEOVANNY VARMA MD [facility] - In-person encounter Office Visit JEOVANNY VARMA MD [facility] - In-person encounter Office Visit JEOVANNY VARMA MD [facility] - In-person encounter Office Visit JEOVANNY VARMA MD [facility] - In-person encounter Office Visit JEOVANNY VARMA MD [facility] - In-person encounter Office Visit JEOVANNY VARMA MD [facility] - In-person encounter Office Visit JEOVANNY VARMA MD [facility] - In-person encounter Office Visit JEOVANNY VARMA MD [facility] - In-person encounter Office Visit JEOVANNY VARMA MD [facility] - In-person encounter Office Visit JEOVANNY VARMA MD [facility] - In-person encounter Office Visit JEOVANNY VARMA MD [facility] - In-person encounter Office Visit JEOVANNY VARMA MD [facility] - In-person encounter Office Visit JEOVANNY VARMA MD [facility] - In-person encounter Office Visit JEOVANNY VARMA MD [facility] - In-person encounter Office Visit JEOVANNY VARMA MD [facility] - In-person encounter Office Visit JEOVANNY VARMA MD [facility] - In-person encounter Office Visit JEOVANNY VARMA MD [facility] - In-person encounter Office Visit JEOVANNY VARMA MD [facility] - In-person encounter Office Visit JEOVANNY VARMA MD [facility] - In-person encounter Office Visit JEOVANNY VARMA MD [facility] - In-person encounter Office Visit JEOVANNY VARMA MD [facility] - In-person encounter Office Visit JEOVANNY VARMA MD [facility] - In-person encounter Office Visit JEOVANNY VARMA MD [facility] - In-person encounter Office Visit JEOVANNY VARMA MD [facility] - In-person encounter Office Visit JEOVANNY VARMA MD [facility] - In-person encounter Office Visit JEOVANNY VARMA MD [facility] - In-person encounter Office Visit JEOVANNY VARMA MD [facility] - In-person encounter Office Visit JEOVANNY VARMA MD [facility] - In-person encounter Office Visit JEOVANNY VARMA MD [facility] - In-person encounter Office Visit Hilda Greene [facility] - In-person encounter Office Visit JEOVANNY VARMA MD [facility] - In-person encounter Office Visit JEOVANNY VARMA MD [facility] - In-person encounter Office Visit JEOVANNY VARMA MD [facility] Acute upper respiratory infections of unspecified siteHemiplegia, unspecifiedGoutCalculus of kidney - In-person encounter Office Visit JEOVANNY VARMA MD [facility] - In-person encounter Office Visit Hilda Greene [facility] - In-person encounter Office Visit Hilda Greene [facility] - In-person encounter Office Visit JEOVANNY VARMA MD [facility] - In-person encounter Office Visit JEOVANNY VARMA MD [facility] - In-person encounter Office Visit JEOVANNY VARMA MD [facility] - In-person encounter Office Visit JEOVANNY VARMA MD [facility] - In-person encounter Office Visit JEOVANNY VARMA MD [facility] - In-person encounter Office Visit JEOVANNY VARMA MD [facility] - In-person encounter Office Visit JEOVANNY VARMA MD [facility] - In-person encounter Office Visit Hilda Greene [facility] - In-person encounter Office Visit Hilda Greene [facility] - In-person encounter Office Visit JEOVANNY VARMA MD [facility] - In-person encounter Office Visit Hilda Greene [facility] - In-person encounter Office Visit Hilda Greene [facility] - In-person encounter Office Visit Hilda Greene [facility] - In-person encounter Office Visit Hilda Greene [facility] - In-person encounter Office Visit Hilda Greene [facility] - In-person encounter Office Visit Hilda Greene [facility] - In-person encounter Office Visit Hilda Greene [facility] - In-person encounter Office Visit Hilda Greene [facility] - In-person encounter Office Visit Hilda Greene [facility] - In-person encounter Office Visit Hilda Greene [facility] - In-person encounter Office Visit Hilda Greene [facility] - In-person encounter Office Visit [facility] [place] [facility] - In-person encounter Office Visit Lisakath Greene [facility] - In-person encounter Office Visit Darnelljoon Greene [facility] - In-person encounter Office Visit Hilda Greene [facility] - In-person encounter Office Visit Lisakath Greene [facility] - In-person encounter Office Visit Hilda Greene [facility] - In-person encounter Office Visit Lisakath Greene [facility] - In-person encounter Office Visit Lisakath Greene [facility] - In-person encounter Office Visit Lisakath Greene [facility] - In-person encounter Office Visit Lisakath Greene [facility] - In-person encounter Office Visit Hilda Greene [facility] - In-person encounter Office Visit Lisakath Greene [facility] - In-person encounter Office Visit Hilda Greene [facility] - In-person encounter Office Visit Lisakath Greene [facility] - In-person encounter Office Visit Lisakath Greene [facility] - In-person encounter Office Visit Darnelljoon Greene [facility] - In-person encounter Office Visit Lisakath Greene [facility] - In-person encounter Office Visit Lisakath Greene [facility] - In-person encounter Office Visit Lisakath Greene [facility] - In-person encounter Office Visit Lisakath Greene [facility] - In-person encounter Office Visit Hilda Greene [facility] VITAL SIGNS Date Observation Value Provider Body Mass Index (Ratio) 24.29 kg/m2 Manuel Chatterjee MD blood pressure, cuff size regular Ke julita Michaelevensmilton blood pressure, diastolic 82 mm[Hg] Ke julita Michaelevenseldbry blood pressure, systolic 140 mm[Hg] Alek saxena Carlos oxygen saturation, oximetry 97 % Jessenia Carlos respiratory rate E&M 12 /min Jessenia Mercado [facility] 69 /min Jessenia Xochilt er weight E&M 146 [lb_av] Jessenia Michaelgamasharif height E&M 65 [in_i] Jessenia Michaelgamasharif Body Mass Index (Ratio) 23.96 kg/m2 Manuel Chatterjee MD blood pressure, diastolic 76 mm[Hg] Alexandria [facility] blood pressure, systolic 140 mm[Hg] Bonnie [facility]Logic blood pressure, cuff size regular Ja rret blood pressure, diastolic 76 mm[Hg] Ja rret blood pressure, systolic 140 mm[Hg] Kel ret pulse rate 56 /min Parish respiratory rate E&M 14 /min oxygen saturation, oximetry 95 % weight E&M 144 [lb_av] Parish y height E&M 65 [in_i] Parish y Body Mass Index (Ratio) 24.63 kg/m2 Manuel Chatterjee MD blood pressure, cuff size regular Ja rret blood pressure, diastolic 83 mm[Hg] Ja rret blood pressure, systolic 188 mm[Hg] Kel guardado pulse rate 51 /min Parish oxygen saturation, oximetry 98 % Parish respiratory rate E&M 12 /min Parish weight E&M 148 [lb_av] Parish height E&M 65 [in_i] Parish Body Mass Index (Ratio) 24.29 kg/m2 Manuel Chatterjee MD blood pressure, diastolic 77 mm[Hg] Alexandria Log blood pressure, systolic 145 mm[Hg] Bonnie [facility] blood pressure, diastolic 77 mm[Hg] Disha talha Chaudhry blood pressure, systolic 145 mm[Hg] Leatha Chaudhry oxygen saturation, oximetry 100 % Krystyna Chaudhry pulse rate 81 /min Krystyna Chaudhry blood pressure, cuff size large An talha Chaudhry weight E&M 146 [lb_av] Krystyna Chaudhry height E&M 65 [in_i] Krystyna Chaudhry Body Mass Index (Ratio) 25.29 kg/m2 Manuel Chatterjee MD blood pressure, cuff size regular Christianne Oconnell blood pressure, diastolic 77 mm[Hg] Christianne Oconnell blood pressure, systolic 125 mm[Hg] Zayra Oconnell oxygen saturation, oximetry 99 % Tiara Oconnell respiratory rate E&M 18 /min Tiara Oconnell pulse rate 74 /min Tiara Oconnell weight E&M 152 [lb_av] Tiara Oconnell height E&M 65 [in_i] Tiara Oconnell Body Mass Index (Ratio) 24.79 kg/m2 Manuel Chatterjee MD blood pressure, diastolic 72 mm[Hg] Alexandria [facility]kLogic blood pressure, systolic 159 mm[Hg] Bonnie kLoggiovanny blood pressure, cuff size regular Christianne Lambert blood pressure, diastolic 72 mm[Hg] Christianne Lambert blood pressure, systolic 159 mm[Hg] Ansley Lambert oxygen saturation, oximetry 99 % Irving Lambert respiratory rate E&M 16 /min Paolo Lambert pulse rate 72 /min Irving alfaro weight E&M 149 [lb_av] Irving alfaro height E&M 65 [in_i] Irving alfaro Body Mass Index (Ratio) 23.96 kg/m2 Manuel Chatterjee MD blood pressure, cuff size regular Ke rri Saranemarc blood pressure, diastolic 70 mm[Hg] Puma rri Carlos blood pressure, systolic 130 mm[Hg] Alek Gonzalez oxygen saturation, oximetry 96 % Jessenia Gonzalez respiratory rate E&M 16 /min Jessenia arthur pulse rate 66 /min Jessenia mays weight E&M 144 [lb_av] Jessenia Lemon lder height E&M 65 [in_i] Jessenia Saranenfyara er Body Mass Index (Ratio) 24.96 kg/m2 Manuel Chatterjee MD blood pressure, cuff size regular Cy liam Jones blood pressure, diastolic 70 mm[Hg] Cy liam Jones blood pressure, systolic 130 mm[Hg] Anel Jones oxygen saturation, oximetry 99 % Chloe Jones respiratory rate E&M 16 /min Chloe Jones pulse rate 64 /min Chloe Shah l weight E&M 150 [lb_av] Chloe Meadbel l height E&M 65 [in_i] Chloe Meadbel l Body Mass Index (Ratio) 24.79 kg/m2 Manuel Chatterjee MD blood pressure, diastolic 61 mm[Hg] Mary travis O'Hang blood pressure, systolic 104 mm[Hg] Pushpa [facility] O'Hang oxygen saturation, oximetry 96 % Nikki O'Hang respiratory rate E&M 16 /min Nikki O'Hang pulse rate 68 /min Nikki O'Hang weight E&M 149 [lb_av] Nikki O'Hang blood pressure, resting Yes Davidson mcgrath O'Hang height E&M 65 [in_i] Nikki O'Hang Body Mass Index (Ratio) 25.49 kg/m2 Manuel Chatterjee MD blood pressure, diastolic 73 mm[Hg] Mary Albrecht blood pressure, systolic 139 mm[Hg] Pushpa Albrecht oxygen saturation, oximetry 94 % Pierre Albrecht respiratory rate E&M 18 /min Omari Albrecht pulse rate 64 /min Pierre lin weight E&M 153.2 [lb_av] Pierre Orlando on height E&M 65 [in_i] Pierre lin Body Mass Index (Ratio) 27.79 kg/m2 Manuel Chatterjee MD blood pressure, diastolic 67 mm[Hg] Mary Albrecht blood pressure, systolic 140 mm[Hg] Pushpa Albrecht oxygen saturation, oximetry 94 % Pierre Albrecht respiratory rate E&M 20 /min Omari Albrecht pulse rate 73 /min Pierre Raza nswilbert weight E&M 167 [lb_av] Pierre Raza nson height E&M 65 [in_i] Pierre Raza on Body Mass Index (Ratio) 26.79 kg/m2 Manuel Chatterjee MD blood pressure, diastolic 68 mm[Hg] Ke rri Gruenenfeldbry blood pressure, systolic 132 mm[Hg] Ker ri Gruenenfelder blood pressure, cuff size large Ke rri Gruenenfelder oxygen saturation, oximetry 98 % Jessenia Jomarer respiratory rate E&M 20 /min Jessenia Rogelio jerezelder pulse rate 58 /min Jessenia Grarabellaparisabrionnae lder weight E&M 161 [lb_av] Jessenia Grgamanfe lder height E&M 65 [in_i] Jessenia Gruenenfe lder pulse rate #2 65 Romain McPherso n blood pressure, perez tolic, second observation 85 mm[Hg] Romain Han blood pressure, syst olic, second observation 139 mm[Hg] Romain Han oxygen saturation, oximetry 97 % Romain Han pulse rate 61 /min Romain Han blood pressure, diastolic 81 mm[Hg] Ra townsend Han blood pressure, systolic 152 mm[Hg] Jossue colón McPherson pulse rate #2 65 Romain McPherso n blood pressure, perez tolic, second observation 85 mm[Hg] Romain Han blood pressure, syst olic, second observation 140 mm[Hg] Romain Han oxygen saturation, oximetry 97 % Romain Han pulse rate 61 /min Romain Han blood pressure, diastolic 83 mm[Hg] Ra ndy Han blood pressure, systolic 150 mm[Hg] Ran dy Han pulse rate #2 64 Romain McPherso n blood pressure, perez tolic, second observation 84 mm[Hg] Romain Han blood pressure, syst olic, second observation 142 mm[Hg] Romain Han oxygen saturation, oximetry 97 % Romain Han pulse rate 69 /min Romain Han blood pressure, diastolic 79 mm[Hg] Ra ndy Han blood pressure, systolic 147 mm[Hg] Ran dy Han pulse rate #2 63 Romain McPherso n blood pressure, perez tolic, second observation 79 mm[Hg] Romain Han blood pressure, syst olic, second observation 142 mm[Hg] Romain Han oxygen saturation, oximetry 97 % Romain Han pulse rate 67 /min Romain Han blood pressure, diastolic 79 mm[Hg] Ra ndy Han blood pressure, systolic 142 mm[Hg] Ran dy Han pulse rate #2 60 Romain McPherso n blood pressure, perez tolic, second observation 88 mm[Hg] Romain Han blood pressure, syst olic, second observation 145 mm[Hg] Romain Han oxygen saturation, oximetry 97 % Romain Han pulse rate 64 /min Romain Han blood pressure, diastolic 82 mm[Hg] Ra ndy Han blood pressure, systolic 151 mm[Hg] Ran dy Han pulse rate #2 65 Romain McPherso n blood pressure, perez tolic, second observation 85 mm[Hg] Romain Han blood pressure, syst olic, second observation 135 mm[Hg] Romain Han oxygen saturation, oximetry 97 % Romain Han pulse rate 61 /min Romain Han blood pressure, diastolic 80 mm[Hg] Ra ndy Han blood pressure, systolic 138 mm[Hg] Ran dy Han pulse rate #2 61 Romain McPherso n blood pressure, perez tolic, second observation 83 mm[Hg] Romain Han blood pressure, syst olic, second observation 145 mm[Hg] Romain Han oxygen saturation, oximetry 97 % Romain Han pulse rate 65 /min Romain Han blood pressure, diastolic 83 mm[Hg] Ra ndy Han blood pressure, systolic 148 mm[Hg] Ran dy Han pulse rate #2 60 Romani McPherso n blood pressure, perez tolic, second observation 83 mm[Hg] Romain Han blood pressure, syst olic, second observation 135 mm[Hg] Romain Han oxygen saturation, oximetry 97 % Romain Han pulse rate 64 /min Romain Han blood pressure, diastolic 78 mm[Hg] Ra ndy Han blood pressure, systolic 141 mm[Hg] Ran dy Han pulse rate #2 67 Romain McPherso n blood pressure, perez tolic, second observation 85 mm[Hg] Romain Han blood pressure, syst olic, second observation 149 mm[Hg] Romain Han oxygen saturation, oximetry 97 % Romain Han pulse rate 67 /min Romain Han blood pressure, diastolic 88 mm[Hg] Ra ndy Han blood pressure, systolic 153 mm[Hg] Ran dy Han pulse rate #2 64 Romain McPherso n blood pressure, perez tolic, second observation 80 mm[Hg] Romain Han blood pressure, syst olic, second observation 140 mm[Hg] Romain Han oxygen saturation, oximetry 97 % Romain Han pulse rate 63 /min Romain Han blood pressure, diastolic 78 mm[Hg] Ra ndy Han blood pressure, systolic 149 mm[Hg] Ran dy Han pulse rate #2 67 Romain McPherso n blood pressure, perez tolic, second observation 78 mm[Hg] Romain Han blood pressure, syst olic, second observation 118 mm[Hg] Romain Han oxygen saturation, oximetry 97 % Romain Han pulse rate 68 /min Romain Han blood pressure, diastolic 80 mm[Hg] Ra ndy Han blood pressure, systolic 147 mm[Hg] Ran dy Han pulse rate #2 62 Romain McPherso n blood pressure, perez tolic, second observation 83 mm[Hg] Romain Han blood pressure, syst olic, second observation 140 mm[Hg] Romain Han oxygen saturation, oximetry 97 % Romain Han pulse rate 64 /min Romain Han blood pressure, diastolic 77 mm[Hg] Ra ndy Han blood pressure, systolic 149 mm[Hg] Ran dy Han pulse rate #2 67 Rmoain McPherso n blood pressure, perez tolic, second observation 83 mm[Hg] Romain Han blood pressure, syst olic, second observation 140 mm[Hg] Romain Han oxygen saturation, oximetry 97 % Romain Han pulse rate 66 /min Romain Han blood pressure, diastolic 85 mm[Hg] Ra ndy Han blood pressure, systolic 165 mm[Hg] Ran dy Han pulse rate #2 65 Romain McPherso n blood pressure, perez tolic, second observation 81 mm[Hg] Romain Han blood pressure, syst olic, second observation 140 mm[Hg] Romain Han oxygen saturation, oximetry 97 % Romain Han pulse rate 66 /min Romain Han blood pressure, diastolic 81 mm[Hg] Ra ndy Han blood pressure, systolic 170 mm[Hg] Ran dy Han pulse rate #2 60 Romain McPherso n blood pressure, perez tolic, second observation 88 mm[Hg] Romain Han blood pressure, syst olic, second observation 150 mm[Hg] Romain Han oxygen saturation, oximetry 97 % Romain Han pulse rate 67 /min Romain Han blood pressure, diastolic 88 mm[Hg] Ra ndy Han blood pressure, systolic 167 mm[Hg] Ran dy Han pulse rate #2 62 Romain McPherso n blood pressure, perez tolic, second observation 85 mm[Hg] Romain Han blood pressure, syst olic, second observation 140 mm[Hg] Romain Han oxygen saturation, oximetry 96 % Romain Han pulse rate 67 /min Romain Han blood pressure, diastolic 75 mm[Hg] Ra ndy Han blood pressure, systolic 151 mm[Hg] Ran dy Han pulse rate #2 64 Romain McPherso n blood pressure, perez tolic, second observation 86 mm[Hg] Romain Han blood pressure, syst olic, second observation 150 mm[Hg] Romain Han oxygen saturation, oximetry 97 % Romain Han pulse rate 64 /min Romain Han blood pressure, diastolic 77 mm[Hg] Ra ndy Han blood pressure, systolic 144 mm[Hg] Ran dy Han pulse rate #2 63 Romain McPherso n blood pressure, perez tolic, second observation 80 mm[Hg] Romain Hna blood pressure, syst olic, second observation 141 mm[Hg] Romain Han oxygen saturation, oximetry 97 % Romain Han pulse rate 66 /min Romain Han blood pressure, diastolic 83 mm[Hg] Ra ndy Han blood pressure, systolic 165 mm[Hg] Ran dy Han pulse rate #2 58 Romain McPherso n blood pressure, perez tolic, second observation 80 mm[Hg] Romain Han blood pressure, syst olic, second observation 140 mm[Hg] Romain Han oxygen saturation, oximetry 96 % Romain Han pulse rate 67 /min Romain Han blood pressure, diastolic 76 mm[Hg] Ra ndy Han blood pressure, systolic 148 mm[Hg] Ran dy Han pulse rate #2 68 Romain McPherso n blood pressure, perez tolic, second observation 79 mm[Hg] Romain Han blood pressure, syst olic, second observation 151 mm[Hg] Romain Han oxygen saturation, oximetry 97 % Romain Han pulse rate 71 /min Romain Han blood pressure, diastolic 80 mm[Hg] Ra ndy Han blood pressure, systolic 165 mm[Hg] Ran dy Han pulse rate #2 63 Romain McPherso n blood pressure, perez tolic, second observation 81 mm[Hg] Romain Han blood pressure, syst olic, second observation 133 mm[Hg] Romain Han oxygen saturation, oximetry 97 % Romain Han pulse rate 70 /min Romain Han blood pressure, diastolic 83 mm[Hg] Ra carlay Han blood pressure, systolic 160 mm[Hg] Ran dy Han pulse rate #2 74 Romain McPherso n blood pressure, perez tolic, second observation 80 mm[Hg] Romain Han blood pressure, syst olic, second observation 134 mm[Hg] Romain Han oxygen saturation, oximetry 97 % Romain Han pulse rate 76 /min Romain Han blood pressure, diastolic 88 mm[Hg] Ra aguirrey Han blood pressure, systolic 160 mm[Hg] Ran dy Han pulse rate #2 65 Romain McPherso n blood pressure, perez tolic, second observation 76 mm[Hg] Romain Han blood pressure, syst olic, second observation 122 mm[Hg] Romain Han oxygen saturation, oximetry 97 % Romain Han pulse rate 71 /min Romain Han blood pressure, diastolic 75 mm[Hg] Ra carlay Han blood pressure, systolic 145 mm[Hg] Ran dy Han pulse rate #2 65 Romain McPherso n blood pressure, perez tolic, second observation 85 mm[Hg] Romain Han blood pressure, syst olic, second observation 144 mm[Hg] Romain Han oxygen saturation, oximetry 97 % Romain Han pulse rate 74 /min Romain Han blood pressure, diastolic 79 mm[Hg] Ra ndy Han blood pressure, systolic 149 mm[Hg] Ran dy Han pulse rate #2 66 Romain Bradshaw n blood pressure, perez tolic, second observation 80 mm[Hg] Romainyou BranchHan blood pressure, syst olic, second observation 150 mm[Hg] Romain Han oxygen saturation, oximetry 96 % Romain Han pulse rate 71 /min Romain Han blood pressure, diastolic 79 mm[Hg] Ra cary Han blood pressure, systolic 155 mm[Hg] Ran dy Han ALLERGIES No Known Drug Allergies RESULTS Date Observation Value Provider Reference Range Interpretation Location prostate specific antigen 1.6 ng/mL [facility] 0.0 - 4.0 very low density lipoproteins 35.6 mg/dL [facility] 5.0 - 40.0 LDL/HDL (low-density lipoprotein/high-den sity lipoprotein) ratio 1.5 RATIO [facility] - lipoprotein, beta, serum, point, quantitative, calculated 73.4 (?) [facility] 0.0 - 100.0 HDL cholesterol, serum 49.0 mg/dL [facility] 35.0 - 55.0 cholesterol, serum 158.0 mg/dL [facility] 0.0 - 200.0 triglyceride, serum, fasting 178.0 mg/dL [facility] 0.0 - 150.0 High anion gap, serum 14.6 [facility] - albumin/globulin ratio, serum 2.0 g/dL [facility] 1.1 - 2.5 globulin, serum 2.1 [facility] 2.3 - 3.8 Low urea nitrogen/creatinine ratio, serum 11.1 [facility] - Estimated Glomerular Filtration Rate (calc) 24.2 (?) [facility] 59.0 - Low chloride, serum 103.4 mmol/L [facility] 98.0 - 107.0 potassium, serum 4.8 mmol/L [facility] 3.5 - 5.1 sodium, serum 141.0 mmol/L [facility] 136.0 - 145.0 creatinine, serum 2.7 mg/dL [facility] 0.7 - 1.2 High carbon dioxide, venous blood [facility].0 mmol/[facility] - 31.0 [facility], [facility].1 [facility] 3[facility] - 5.2 calcium, serum 8.5 mg/dL [facility] 8.6 - 10.2 Low aspartate aminotransferase (SGOT), serum 12.0 1/L [facility] 0.[facility] - 40.0 alkaline phosphatase, serum 96.0 1/L [facility] 40.0 - 130.0 alanine aminotransferase (SGPT), serum 9.0 1/L [facility] 0.[facility] - 41.0 protein, total, serum 6.2 g/dL [facility] 6.6 - 8.7 Low bilirubin, serum, total 0.2 mg/dL [facility] 0.0 - 1.2 urea nitrogen, blood 30.0 mg/dL [facility] 8.0 - 23.0 High blood glucose, random 177.0 mg/dL [facility] 74.0 - 99.0 High red blood cell distribution width, size density 50.5 fL [facility] - immature granulocytes, percentage of total cells, blood 0.5 % [facility] - nucleated red blood cells as percent of blood leukocytes 0.0 % [facility] - red blood cell (erythrocyte) count, per high power field 0.0 10*3/UL [facility] - eosinophils as percent of blood leukocytes 2.8 % [facility] - neutrophils as percent of blood leukocytes 67.6 % [facility] Absolute Neutrophils 4.4 CELLS/UL [facility] 1.5 - 7.8 basophils as percent of blood leukocytes 0.6 % [facility] - Absolute Basophils 0.0 CELLS/UL [facility] 0.0 - 0.2 monocytes as percent of blood leukocytes 6.3 % [facility] Monocytes 0.4 CELLS/UL [facility] 0.2 - 1.0 lymphocytes as percent of blood leukocytes 22.2 % [facility] Absolute Lymphocytes 1.4 CELLS/UL [facility] 0.9 - 3.9 mean platelet volume 11.0 (?) [facility] - platelet count 193.0 THOUSAND/ UL [facility] 100.0 - 400.0 mean corpuscular hemoglobin concentration, RBC 31.7 G/DL [facility] 31.0 - 38.0 mean corpuscular hemoglobin, RBC 31.0 pg [facility] 25.0 - 35.0 mean corpuscular volume, RBC 97.9 fL [facility] 75.0 - 100.0 hematocrit, blood 32.8 % [facility] 35.0 - 55.0 Low hemoglobin, blood 10.4 g/dL [facility] 11.5 - 16.5 Low erythrocyte count, whole blood 3.4 MILLION/U L [facility] 3.5 - 5.5 Low hemoglobin A1C, blood, as % of total hemoglobin 7.2 % [facility] 4.0 - 5.6 High thyroid stimulating hormone, serum 231.600 ??IU/ML [facility] 0.270 - 4.200 High very low density lipoproteins 51.4 mg/dL [facility] 5.0 - 40.0 High LDL/HDL (low-density lipoprotein/high-den sity lipoprotein) ratio 1.3 RATIO [facility] - lipoprotein, beta, serum, point, quantitative, calculated 72.6 (?) [facility] 0.0 - 100.0 HDL cholesterol, serum 56.0 mg/dL [facility] 35.0 - 55.0 High cholesterol, serum 180.0 mg/dL [facility] 0.0 - 200.0 triglyceride, serum, fasting 257.0 mg/dL [facility] 0.0 - 150.0 High anion gap, serum 17.5 [facility] - albumin/globulin ratio, serum 2.6 g/dL [facility] 1.1 - 2.5 High globulin, serum 2.5 [facility] 2.3 - 3.8 urea nitrogen/creatinine ratio, serum 9.3 [facility] - Estimated Glomerular Filtration Rate (calc) 22.4 (?) [facility] 59.0 - Low chloride, serum 97.5 mmol/L [facility] 98.0 - 107.0 Low potassium, serum 4.2 mmol/L [facility] 3.5 - 5.1 sodium, serum 140.0 mmol/L [facility] 136.0 - 145.0 creatinine, serum 2.9 mg/dL [facility] 0.7 - 1.2 High carbon dioxide, venous blood 25.0 mmol/L [facility] 23.0 - 31.0 albumin, serum 4.2 g/dL [facility] 3.5 - 5.2 calcium, serum 9.1 mg/dL [facility] 8.6 - 10.2 aspartate aminotransferase (SGOT), serum 14.0 1/L [facility] 0.0 - 40.0 alkaline phosphatase, serum 62.0 1/L [facility] 40.0 - 130.0 alanine aminotransferase (SGPT), serum 17.0 1/L [facility] 0.0 - 41.0 protein, total, serum 6.7 g/dL [facility] 6.6 - 8.7 bilirubin, serum, total 0.2 mg/dL [facility] 0.0 - 1.2 urea nitrogen, blood 27.0 mg/dL [facility] 8.0 - 23.0 High blood glucose, random 198.0 mg/dL [facility] 74.0 - 99.0 High red blood cell distribution width, size density 50.8 fL [facility] granulocytes, percentage of total cells, blood 0.5 % [facility] - nucleated red blood cells as percent of blood leukocytes 0.0 % [facility] - red blood cell (erythrocyte) count, per high power field 0.0 10*3/UL [facility] - eosinophils as percent of blood leukocytes 6.6 % [facility] - neutrophils as percent of blood leukocytes 67.0 % [facility] Absolute Neutrophils 3.8 CELLS/UL [facility] 1.5 - 7.8 basophils as percent of blood leukocytes 0.5 % [facility] Absolute Basophils 0.0 CELLS/UL [facility] 0.0 - 0.2 monocytes as percent of blood leukocytes 5.9 % [facility] - Absolute Monocytes 0.3 CELLS/UL [facility] 0.2 - 1.0 lymphocytes as percent of blood leukocytes 19.5 % [facility] Absolute Lymphocytes 1.1 CELLS/UL [facility] 0.9 - 3.9 mean platelet volume 10.3 (?) [facility] - platelet count 228.0 THOUSAND/ UL [facility] 100.0 - 400.0 mean corpuscular hemoglobin concentration, RBC 30.9 G/DL [facility] 31.0 - 38.0 Low mean corpuscular hemoglobin, RBC 31.1 pg [facility] 25.0 - 35.0 mean corpuscular volume, RBC 100.6 fL [facility] 75.0 - 100.0 High hematocrit, blood 35.9 % [facility] 35.0 - 55.0 hemoglobin, blood 11.1 g/dL [facility] 11.5 - 16.5 Low erythrocyte count, whole blood 3.6 MILLION/U L [facility] 3.5 - 5.5 hemoglobin A1C, blood, as % of total hemoglobin 7.1 % [facility] 4.0 - 6.0 High red blood cell distribution width, size density 51.5 fL [facility] - immature granulocytes, percentage of total cells, blood 0.4 % [facility] - nucleated red blood cells as percent of blood leukocytes 0.0 % [facility] - red blood cell (erythrocyte) count, per high power field 0.0 10*3/UL [facility] - eosinophils as percent of blood leukocytes 2.7 % [facility] - neutrophils as percent of blood leukocytes 66.4 % [facility] - Absolute Neutrophils 5.5 CELLS/UL [facility] 1.5 - 7.8 basophils as percent of blood leukocytes 0.5 % [facility] - Absolute Basophils 0.0 CELLS/UL [facility] 0.0 - 0.2 monocytes as percent of blood leukocytes 8.2 % [facility] - Absolute Monocytes 0.7 CELLS/UL [facility] 0.2 - 1.0 lymphocytes as percent of blood leukocytes 21.8 % [facility] - Absolute Lymphocytes 1.8 CELLS/UL [facility] 0.9 - 3.9 mean platelet volume 10.3 (?) [facility] - platelet count 325.0 THOUSAND/ UL [facility] 100.0 - 400.0 mean corpuscular hemoglobin concentration, RBC 31.1 G[facility] - 38.0 mean corpuscular hemoglobin, RBC 31.3 pg [facility] 25.0 - 35.0 mean corpuscular volume, RBC 100.7 fL [facility] 75.0 - 100.0 High hematocrit, blood 29.9 % [facility] 35.0 - 55.0 Low hemoglobin, blood 9.3 g/dL [facility] 11.5 - 16.5 Low erythrocyte count, whole blood 3.0 MILLION/U L [facility] 3.5 - 5.5 Low hemoglobin A1C, blood, as % of total hemoglobin 6.9 % [facility] 4.0 - 6.0 High iron, serum 140.0 ug/dL [facility] 31.0 - 144.0 vitamin b12, serum 2000.0 pg/mL [facility] 211.0 - 946.0 High very low density lipoproteins 37.2 mg/dL [facility] 5.0 - 40.0 LDL/HDL (low-density lipoprotein/high-den sity lipoprotein) ratio 1.5 RATIO [facility] - lipoprotein, beta, serum, point, quantitative, calculated 78.8 (?) [facility] 0.0 - 100.0 HDL cholesterol, serum 53.0 mg/dL [facility] 35.0 - 55.0 cholesterol, serum 169.0 mg/dL [facility] 0.0 - 200.0 triglyceride, serum, fasting 186.0 mg/dL [facility] 0.0 - 150.0 High anion gap, serum 14.5 [facility] - albumin/globulin ratio, serum 2.6 g/dL [facility] 1.1 - 2.5 High globulin, serum 2.6 [facility] 2.3 - 3.8 urea nitrogen/creatinine ratio, serum 12.9 [facility] - Estimated Glomerular Filtration Rate (calc) 23.3 (?) [facility] 59.0 - Low chloride, serum 106.5 mmol/L [facility] 98.0 - 107.0 potassium, serum 4.8 mmol/L [facility] 3.5 - 5.1 sodium, serum 141.0 mmol/L [facility] 136.0 - 145.0 creatinine, serum 2.8 mg/dL [facility] 0.7 - 1.2 High carbon dioxide, venous blood 20.0 mmol/L [facility] 23.0 - 31.0 Low albumin, serum 4.2 g/dL [facility] 3.5 - 5.2 calcium, serum 9.2 mg/dL [facility] 8.6 - 10.2 aspartate aminotransferase (SGOT), serum 12.0 1/L [facility] 0.0 - 40.0 alkaline phosphatase, serum 53.0 1/L [facility] 40.0 - 130.0 alanine aminotransferase (SGPT), serum 15.0 1/L [facility] 0.0 - 41.0 protein, total, serum 6.8 g/dL [facility] 6.6 - 8.7 bilirubin, serum, total 0.2 mg/dL [facility] 0.0 - 1.2 urea nitrogen, blood 36.0 mg/dL [facility] 8.0 - 23.0 High blood glucose, random 126.0 mg/dL [facility] 74.0 - 99.0 High red blood cell distribution width, size density 51.3 fL [facility] - immature granulocytes, percentage of total cells, blood 0.5 % [facility] nucleated red blood cells as percent of blood leukocytes 0.0 % [facility] red blood cell (erythrocyte) count, per high power field 0.0 10*3/UL [facility] eosinophils as percent of blood leukocytes 3.5 % [facility] neutrophils as percent of blood leukocytes 64.5 % [facility] Absolute Neutrophils 3.9 CELLS/UL [facility] 1.5 - 7.8 basophils as percent of blood leukocytes 0.7 % [facility] - Absolute Basophils 0.0 CELLS/UL [facility] 0.0 - 0.2 monocytes as percent of blood leukocytes 5.1 % [facility] - Absolute Monocytes 0.3 CELLS/UL [facility] 0.2 - 1.0 lymphocytes as percent of blood leukocytes 25.7 % [facility] - Absolute Lymphocytes 1.6 CELLS/UL [facility] 0.9 - 3.9 mean platelet volume 10.2 (?) [facility] - platelet count 241.0 THOUSAND/ UL [facility] 100.0 - 400.0 mean corpuscular hemoglobin concentration, RBC 32.3 G/DL [facility] 31.0 - 38.0 mean corpuscular hemoglobin, RBC 32.0 pg [facility] 25.0 - 35.0 mean corpuscular volume, RBC 99.2 fL [facility] 75.0 - 100.0 hematocrit, blood 35.9 % [facility] 35.0 - 55.0 hemoglobin, blood 11.6 g/dL [facility] 11.5 - 16.5 erythrocyte count, whole blood 3.6 MILLION/U L [facility] 3.5 - 5.5 hemoglobin A1C, blood, as % of total hemoglobin 7.0 % [facility] 4.0 - 6.0 High thyroid stimulating hormone, serum 192.300 ?IU/ML [facility] 0.270 - 4.200 High very low density lipoproteins 47.2 mg/dL [facility] 5.0 - 40.0 High LDL/HDL (low-density lipoprotein/high-den sity lipoprotein) ratio 1.9 RATIO [facility] - lipoprotein, beta, serum, point, quantitative, calculated 99.8 (?) [facility] HDL cholesterol, serum 53.0 mg/dL [facility] 35.0 - 55.0 cholesterol, serum 200.0 mg/dL [facility] 0.0 - 200.0 triglyceride, serum, fasting 236.0 mg/dL [facility] 0.0 - 150.0 High anion gap, serum 19.5 [facility] albumin/globulin ratio, serum 2.8 g/dL [facility] 1.1 - 2.5 High globulin, serum 2.4 [facility] 2.3 - 3.8 urea nitrogen/creatinine ratio, serum 15.5 [facility] Glomerular Filtration Rate (calc) 34.4 (?) [facility] 59.0 - Low chloride, serum 99.5 mmol/L [facility] 98.0 - 107.0 potassium, serum 3.9 mmol/L [facility] 3[facility] - 5.1 sodium, serum 138.0 mmol/L [facility] 136.0 - 145.0 creatinine, serum 2.0 mg/dL [facility] 0.7 - 1.2 High carbon dioxide, venous blood 19.0 mmol/L [facility] 23.0 - 31.0 Low albumin, serum 4.4 g/dL [facility] 3.5 - 5.2 calcium, serum 9.2 mg/dL [facility] 8.6 - 10.2 aspartate aminotransferase (SGOT), serum 22.0 1/L [facility] 0.0 - 40.0 alkaline phosphatase, serum 48.0 1/L [facility] 40.0 - 130.0 alanine aminotransferase (SGPT), serum 37.0 1/L [facility] 0.0 - 41.0 protein, total, serum 6.8 g/dL [facility] 6.6 - 8.7 bilirubin, serum, total 0.2 mg/dL [facility] 0.0 - 1.2 urea nitrogen, blood 31.0 mg/dL [facility] 8.0 - 23.0 High blood glucose, random 108.0 mg/dL [facility] 74.0 - 99.0 High red blood cell distribution width, size density 53.3 fL [facility] - immature granulocytes, percentage of total cells, blood 0.4 % [facility] - nucleated red blood cells as percent of blood leukocytes 0.0 % [facility] - red blood cell (erythrocyte) count, per high power field 0.0 10*3/UL [facility] - eosinophils as percent of blood leukocytes 6.3 % [facility] as percent of blood leukocytes 59.8 % [facility] - Absolute Neutrophils 3.1 CELLS/UL [facility] 1.5 - 7.8 basophils as percent of blood leukocytes 1.3 % [facility] - Absolute Basophils 0.1 CELLS/UL [facility] 0.0 - 0.2 monocytes as percent of blood leukocytes 6.9 % [facility] - Absolute Monocytes 0.4 CELLS/UL [facility] 0.2 - 1.0 lymphocytes as percent of blood leukocytes 25.3 % [facility] - Absolute Lymphocytes 1.3 CELLS/UL [facility] 0.9 - 3.9 mean platelet volume 10.4 (?) [facility] - platelet count 205.0 THOUSAND/ UL [facility] 100.0 - 400.0 mean corpuscular hemoglobin concentration, RBC 31.4 G/DL [facility] 31.0 - 38.0 mean corpuscular hemoglobin, RBC 30.7 pg [facility] 25.0 - 35.0 mean corpuscular volume, RBC 97.8 fL [facility] 75.0 - 100.0 hematocrit, blood 36.3 % [facility] 35.0 - 55.0 hemoglobin, blood 11.4 g/dL [facility] 11.5 - 16.5 Low erythrocyte count, whole blood 3.7 MILLION/U L [facility] 3.5 - 5.5 thyroid stimulating hormone, serum 97.470 ?IU/ML [facility] 0.270 - 4.200 High very low density lipoproteins 24.6 mg/dL [facility] 5.0 - 40.0 LDL/HDL (low-density lipoprotein/high-den sity lipoprotein) ratio 1.5 RATIO [facility] - HDL cholesterol, serum 58.0 mg/dL [facility] 35.0 - 55.0 High sum total cholesterol 169.0 mg/dL [facility] 0.0 - 200.0 Triglycerides-direct 123.0 mg/dL [facility] 0.0 - 150.0 anion gap, serum 14.0 [facility] - albumin/globulin ratio, serum 2.3 g/dL [facility] 1.1 - 2.5 globulin, serum 2.4 [facility] 2.3 - 3.8 urea nitrogen/creatinine ratio, serum 10.5 [facility] - Estimated Glomerular Filtration Rate (calc) 36.5 (?) [facility] 59.0 - Low chloride, serum 100.0 mmol/L [facility] 98.0 - 107.0 potassium, serum 4.9 mmol/L [facility] 3.5 - 5.1 sodium, serum 139.0 mmol/L [facility] 136.0 - 145.0 creatine, serum 1.9 mg/dL [facility] 0.7 - 1.2 High carbon dioxide, venous blood 25.0 mmol/L [facility] 23.0 - 31.0 albumin, serum 3.8 g/dL [facility] 3.5 - 5.2 calcium, serum 8.6 mg/dL [facility] 8.6 - 10.2 aspartate aminotransferase (SGOT), serum 30.0 1/L [facility] 0.0 - 40.0 alkaline phosphatase, serum 72.0 1/L [facility] 40.0 - 130.0 alanine aminotransferase (SGPT), serum 36.0 1/L [facility] 0.0 - 41.0 protein, total, serum 6.2 g/dL [facility] 6.6 - 8.7 Low urea nitrogen, blood 20.0 mg/dL [facility] 8.0 - 23.0 Glucose Urine 117.0 mg/dL [facility] 74.0 - 99.0 High bilirubin, serum, total 0.1 mg/dL [facility] 0.0 - 1.2 nitrate usage none Romain Han nitrate usage none [facility] usage none [facility] usage none [facility] nitrate usage none Romain Han nitrate usage none [facility] usage none [facility] usage none [facility] usage none [facility] usage none [facility] usage none [facility] usage none [facility] usage none [facility] usage none [facility] usage none [facility] nitrate usage none [facility] nitrate usage none [facility] nitrate usage none [facility] nitrate usage none [facility] nitrate usage none [facility] nitrate usage none [facility] HISTORY OF MEDICATION USE Medication Status Instructions Dates Provider Indications Com ments nitroglycerin 0.4 mg tablet, sublingual active DISSOLVE ONE TABLET UNDER THE TONGUE EVERY 5 MINUTES NEEDED FOR CHEST PAIN. DO NOT EXCEED A TOTAL OF 3 DOSES IN 15 MINUTES Gia Taylorenz Farxiga 5 mg tablet active Krystyna Chaudhry levothyroxine 50 mcg capsule active Krystyna Chaudhry lansoprazole 30 mg capsule,delayed release(DR/EC) active Krystyna Chaudhry calcitriol 0.25 mcg capsule active Krytsyna Chaudhry nitroglycerin 0.4 mg tablet, sublingual completed Place 1 tablet under tongue as directed as needed as needed for Chest Pain every 5 min.- after 3 tabs if no relief seek medical attention - Fany Oconnor RN atorvastatin 40 mg tablet active Take 1 tablet by mouth once daily Elsy Escalera amiodarone 200 mg tablet completed Take 1 tablet by mouth once daily - Jose Chatterjee MD furosemide 40 mg tablet active 1 tablet once a day Irving Lambert folic acid 1 mg tablet active Take 1 tablet by mouth once a day Kumar Thakur RN amiodarone 200 mg tablet completed Take 1 tablet by mouth once a day - Kumar Thakur RN FOLIC ACID TABLET completed take oen pill a day - Adriel Donato ferrous sulfate 325 mg (65 mg iron) tablet active once a day Jessenia Gonzalez Colace 100 mg capsule completed Take 1 twice a day - Krystyna Chaudhry atorvastatin 40 mg tablet completed Take 1 tablet by mouth once a day - Mike Varner Cozaar 25 mg tablet completed Take 1 once a day - Krystyna Chaudhry sodium bicarbonate 650 mg tablet active Take 1 tablet by mouth twice a day Kumar Thakur RN PSEUDOEPHEDRINE HCL 30 MG/5ML ORAL SYRUP completed once a day - Nikki Flood ONETOUCH VERIO IN VITRO STRIP completed use one test strip daily for testing 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 ZOLPIDEM TARTRATE 5 MG ORAL TABLET completed ONE TABLET IN THE EVENING NEEDED - Jessenia Gonzalez MEGESTROL ACETATE 20 MG ORAL TABLET completed ONE TABLET DAILY - Jessenia Gonzalez Lantus U-100 Insulin 100 unit/mL solution completed Inject 20 unit once a day - Krystyna Chaudhry FERROUS SULFATE 325 (65 Fe) MG ORAL TABLET completed ONE TABLET TWICE DAILY - JEOVANNY VARMA MD D 1000 TABLET active 1 once a day Kumar Thakur RN ALBUTEROL SULFATE (2.5 MG/3ML) 0.083% INHALATION NEBULIZATION SOLUTION completed 2 PUFFS TWICE DAILY NEEDED - Jessenia Gonzalez METOPROLOL SUCCINATE ER 25 MG ORAL TABLET EXTENDED RELEASE 24 HOUR completed ONE TABLET DAILY - Nikki Flood METHIMAZOLE 10 MG ORAL TABLET completed 2 TABLETS DAILY - Jose Chatterjee MD ATORVASTATIN CALCIUM 40 MG ORAL TABLET completed ONE TABLET DAILY - JEOVANNY VARMA MD AMIODARONE HCL 200 MG ORAL TABLET completed ONE TAB. DAILY - Jessenia Gonzalez TYLENOL PM EXTRA STRENGTH completed ONE TABLET AT BEDTIME - JEOVANNY VARMA MD MULTIVITAMINS ORAL CAPSULE active 1 tablet once a day Kumar Thakur RN ZOLPIDEM TARTRATE 5 MG ORAL TABLET completed ONE TABLET AT NIGHT NEEDED - JEOVANNY VARMA MD NITROGLYCERIN 0.4 MG/HR TRANSDERMAL PATCH 24 HOUR completed NEEDED FOR CHEST PAIN - JEOVANNY VARMA MD DIOVAN 160 MG ORAL TABLET completed ONE TAB. DAILY - JEOVANNY VARMA MD PACERONE 200 MG ORAL TABLET completed ONE TAB. DAILY - JEOVANNY VARMA MD METFORMIN HCL 500 MG ORAL TABLET completed ONE TABLET TWICE DAILY - JEOVANNY VARMA MD LISINOPRIL 20 MG ORAL TABLET completed ONE TABLET TWICE DAILY - Jessenia Gonzalez FOLIC ACID 1 MG ORAL TABLET completed ONE TABLET DAILY - JEOVANNY VARMA MD Prevacid 30 mg capsule,delayed release(DR/EC) completed 1 tablet twice a day - Krystyna Chaudhry PLAVIX 75 MG ORAL TABLET completed ONE TAB. DAILY - JEOVANNY VARMA MD Dilantin Extended 100 mg capsule completed capsule - Krystyna Chaudhry VITAMIN B-12 1000 MCG ORAL TABLET completed ONE TABLET DAILY - Nikki O'Hang ASPIRIN 81 MG ORAL TABLET completed 1 tablet once a day - Krystyna Chaudhry TUSSIONEX PENNKINETIC ER 10-8 MG/5ML ORAL SUSPENSION EXTENDED RELEASE completed ONE (1) TEASPOONFUL TWICE DAILY - JEOVANNY VARMA MD LEVAQUIN 500 MG ORAL TABLET completed ONE TABLET DAILY - JEOVANNY VARMA MD MECLIZINE HCL 12.5 MG ORAL TABLET completed ONE TABLET THREE DAILY NEEDED - JEOVANNY VARMA MD PREDNISONE 5 MG ORAL TABLET completed one tab daily - Jose Chatterjee MD SOCIAL HISTORY Date Observation Value Provider alcohol use no Jose Nelson passive cigarette sm luis angel exposure no Jose Chatterjee MD smoking, year quit 1974 Jose conway MD cigarette use yes Jose Chatterjee MD smoking status Former smoker Jose cosme MD alcohol use no Jose Nelson passive cigarette sm luis angel exposure no Jose Chatterjee MD smoking, year quit 1974 Jose conway MD cigarette use yes Jose Chatterjee MD smoking status Former smoker Jose cosme MD social history reviewed E&M revi ewed - no changes required Jose Chatterjee MD social history E&M Marital Statu s: C hildren: 3 O ccupation: Retired Smoking History: Dionte jaxson is a former smoker. Jose Chatterjee MD social history reviewed E&M revi ewed - no changes required Jose Chatterjee MD passive cigarette sm luis angel exposure no Krystyna Chaudhry smoking, year quit 1975 Krystyna Will iams cigarette use yes Krystyna Chaudhry smoking status Former smoker Krystyna darnell social history reviewed E&M revi ewed - no changes required Jose Chatterjee MD social history reviewed E&M revi ewed - no changes required Jose Chatterjee MD social history E&M Marital Statu s: Manuel sharpe: 3 O ccupation: Retired Smoking History: P atient is a former smoker. Jose Chatterjee MD social history reviewed E&M revi ewed - no changes required Jose Chatterjee MD passive cigarette sm luis angel exposure no Jessenia Petitlatriceer smoking, year quit 1975 Jessenia Rodriguezhollis enenfelder cigarette use yes Jessenia Hwang elder smoking status Former smoker Jessenia Petit nfelder social history E&M Marital Statu s: Manuel sharpe: 3 O ccupation: Retired Smoking History: P atient is a former smoker. Jose Chatterjee MD social history reviewed E&M revi ewed - no changes required Jose Chatterjee MD passive cigarette sm luis angel exposure no Chloe Jones smoking, year quit 1975 Chloe fu cigarette use yes Chloe patiño smoking status Former smoker Chloe mohan social history E&M Marital Statu s: Manuel sharpe: 3 O ccupation: Retired Smoking History: P atient is a former smoker. Jose Chatterjee MD social history reviewed E&M revi ewed - no changes required Jose Chatterjee MD passive cigarette sm luis angel exposure no Nikki Flood smoking, year quit 1974 Nikki Santoyo' Hang cigarette use yes Nikki O'Hang smoking status Former smoker Nikki German l social history E&M Marital Statu s: Manuel sharpe: 3 O ccupation: Retired Smoking History: P atient is a former smoker. Jose Chatterjee MD social history reviewed E&M revi ewed - no changes required Jose Chatterjee MD alcohol use no Pierre Raza nson passive cigarette sm luis angel exposure no Pierre Albrecht smoking, year quit 1974 Pierre Albrecht cigarette use yes Pierre pulliam smoking status Former smoker Pierre Mccord social history E&M Marital Statu s: Manuel sharpe: 3 O ccupation: Retired Smoking History: P atient is a former smoker. Jose Chatterjee MD social history reviewed E&M revi ewed - no changes required Jose Chatterjee MD alcohol use no Pierre Raza nson passive cigarette sm luis angle exposure no Pierre Albrecht smoking, year quit 1974 Pierre Albrecht cigarette use yes Pierre pulliam smoking status Former smoker Pierre Mccord alcohol use no Jose Nelson passive cigarette sm luis angel exposure no Jose Chatterjee MD social history E&M Marital Statu s: Manuel sharpe: 3 O ccupation: Retired Smoking History: P atient is a former smoker. Jose Chatterjee MD social history reviewed E&M revi ewed - no changes required Jose Chatterjee MD colon surgery, hx of Colon Surgery,Hx of Jose Chatterjee MD Surgical History of Back Surgery Surgical History of Back Surgery Jose Chatterjee MD smoking, year quit 1974 Jessenia garcia cigarette use yes Jessenia Hwang elder smoking status Former smoker [facility]enia [facility]it [facility] FUNCTIONAL STATUS Date Observation Value Provider HRA, CV Assess/Plan, Angina (inactive) Management Plan continue current therapy Jose Chatterjee MD HRA, CV Assess/Plan, Angina (inactive) Management Plan continue current therapy Jose Chatterjee MD HRA, CV Assess/Plan, Angina (inactive) Management Plan continue current therapy Jose Chatterjee MD HRA, CV Assess/Plan, Angina (inactive) Management Plan continue current therapy Jose Chatterjee MD HRA, CV Assess/Plan, Angina (inactive) Management Plan continue current therapy Jose Chatterjee MD HRA, CV Assess/Plan, Angina (inactive) Management Plan continue current therapy Jose Chatterjee MD MENTAL STATUS Date Observation Value Provider energy level yes Romain Han energy level yes Romain Han energy level yes Romain Han energy level yes Romain Han energy level yes Romain Han energy level yes Romian Han energy level yes Romain Han energy level yes Romain Han energy level yes Romain Han energy level yes Romain Han energy level yes Romain Han energy level yes Romain Han energy level yes Romain Han energy level yes Romain Han energy level yes Romain Han energy level yes Romain Han energy level no Romain Han energy level no Rmoain Han energy level yes Romain Han energy level no Romain Han energy level no Romain Han energy level yes Romain Han energy level yes Romain Han energy level yes Romain Han energy level no Romain Han FAMILY HISTORY Family Member Condition Father Negative FH of Coron kiley Artery Disease Mother Negative FH of Coron kiley Artery Disease INSURANCE PROVIDERS Payer name Policy type / Coverage type [place] red republican ID [facility] Blue Shield [id number] 1 [place]IC[place] Medicare [id number] ADVANCE DIRECTIVES Name Date DISCUSSED - NO DECISION MADE TREATMENT PLAN Date Name Performer [id number],S, Jose Ramada carmelina KUMAR [id number],S, Jose Ramada carmelina KUMAR [id number],S, Jose Ramada carmelina KUMAR [id number],S, Jose Ramada carmelina KUMAR [id number],B, Jose Ramada n [id number],S, Jose Ramada n [id number],S, Jose Ramada n [id number],S, Jose Ramada n [id number],S, Jose Ramada n [id number],S, Jose Ramada n [id number],S, Jose Ramada n [id number],S, Jose Ramada n [id number],S, Jose Ramada n [id number],S, Jose Ramada n [id number],S, Jose Ramada n [id number],S, Jose Ramada carmelina KUMAR [id number],S, Jose Ramada n [id number],S, Jose cosme MD [id number],S, Jose cosme MD [id number],B, Jose cosme MD [id number],S, Jose cosme MD [id number],S, Jose cosme MD Cardiology Jose Chatterjee MD Cardiology Jose Chatterjee MD Cardiology Jose Chatterjee MD Cardiology Jose Chatterjee MD Cardiology Jose Chatterjee MD Cardiology Jose Chatterjee MD Cardiology Jose Chatterjee MD Cardiology Jose Chatterjee MD Cardiology Jose Chatterjee MD Cardiology:Has rare angina relieved with one ntg tab. N o testing at this point with patients age and debilities. He agrees he does not want testing done. Jose Chatterjee MD Cardiology Jose Chatterjee MD Cardiology Jose Chatterjee MD Cardiology Jose Chatterjee MD Cardiology Jose Chatterjee MD Cardiology Jose Chatterjee MD Cardiology Jose Chatterjee MD Cardiology Jose Chatterjee MD Cardiology Jose Chatterjee MD Cardiology Jose Chatterjee MD Cardiology Jose Chatterjee MD Cardiology Jose Chatterjee MD Cardiology Jose Chatterjee MD Cardiology Jose Chatterjee MD Cardiology Jose Chatterjee MD Cardiology Jose Chatterjee MD Cardiology Jose Chatterjee MD Cardiology Jose Chatterjee MD Cardiology Jose Chatterjee MD Cardiology Jose Chatterjee MD Cardiology Jose Chatterjee MD Cardiology Jose Chatterjee MD Cardiology Jose Chatterjee MD Cardiology Follow up Jose richardson MD Cardiology Follow up Jose richardson MD Cardiology Follow up Jose richardson MD Cardiology Follow up Jose richardson MD Cardiology follow up Jose richardson MD Cardiology follow up Jose richardson MD Cardiology follow up Jose richardson MD Cardiology follow up Jose richardson MD Cardiology follow up Jose richardson MD Cardiology follow up Jose richardson MD Cardiology follow up Jose richardson MD Cardiology Jose Chatterjee MD Cardiology Jose Chatterjee MD Cardiology Jose Chatterjee MD Cardiology Jose Chatterjee MD Cardiology Jose Chatterjee MD Cardiology Jose Chatterjee MD Cardiology Jose Chatterjee MD Cardiology Jose Chatterjee MD Cardiology Jose Chatterjee MD Cardiology Jose Chatterjee MD Cardiology Jose Chatterjee MD Cardiology Jose Chatterjee MD Cardiology Jose Chatterjee MD Cardiology Jose Chatterjee MD Cardiology Jose Chatterjee MD Cardiology Jose Chatterjee MD Cardiology:Normal LV function by ECHO. D oes not go down with elevation. 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 Jose Chatterjee MD Cardiology New Patient Jose conway MD Cardiology New Patient Jose conway MD Cardiology New Patient Jose conway MD Cardiology New Patient Jose conway MD Cardiology New Patient Jose conway MD Cardiology New Patient Jose conway MD Cardiology New Patient Jose conway MD Date Name Complete Echo Complete Echo PSA, TOTAL HEMOGLOBIN A1c LIPID PANEL COMPREHENSIVE METABO LIC PANEL, W/EGFR CBC (INCLUDES DIFF/P LT) CULTURE, TELECOMMUNICATIONS SWITCH TECHNICIAN/NASAL LIPID PANEL TSH, 3RD GENERATION W/REFLEX TO FT4 HEMOGLOBIN A1c COMPREHENSIVE METABO LIC PANEL W/EGFR CBC (INCLUDES DIFF/P LT) IRON, TOTAL VITAMIN B12 HEMOGLOBIN A1c LIPID PANEL COMPREHENSIVE METABO LIC PANEL W/EGFR CBC (INCLUDES DIFF/P LT) CBC (H/H, RBC, INDIC ES, WBC, PLT) TSH, 3RD GENERATION W/REFLEX TO FT4 HEMOGLOBIN A1c LIPID PANEL COMPREHENSIVE METABO LIC PANEL W/EGFR Phenytoin (Dilantin) , Serum Phenytoin (Dilantin) , Serum Phenytoin (Dilantin) , Serum TSH, 3RD GENERATION W/REFLEX TO FT4 LIPID PANEL COMPREHENSIVE METABO LIC PANEL W/EGFR CBC (INCLUDES DIFF/P LT) HISTORY OF PROCEDURES Procedure Date Procedure Name Provider Procedure Notes S tatus Complex e/m visit add on Jose Chatterjee MD completed EKG Jose Chatterjee MD complete d EKG Jose Chatterjee MD complete d EKG Jose Chatterjee MD complete d EKG Jose Chatterjee MD complete d EKG Jose Chatterjee MD complete d EKG Jose Chatterjee MD complete d ePrescribe - Check t his box if eRx is used JEOVANNY VARMA MD completed ePrescribe - Check t his box if eRx is used JEOVANNY VARMA MD completed ePrescribe - Check t his box if eRx is used JEOVANNY VARMA MD completed ePrescribe - Check t his box if eRx is used JEOVANNY VARMA MD completed
--- OUTSIDE RECORDS SUMMARY | 2024-05-05 14:12 | XMS_ITS | Referral Summary ---
Author Organization [facility] Address [address] [place] [address] Care Team Providers Care Blocker Hand Name Role Phone Keyon Crocker MD Primary Care Provider Care, [facility] Unavailable [phone] Aguilar Garcia MD Unavailable [phone] Source Comments [facility],non-owned Affiliates and Associated Physician Practices is amultiple site organization consisting of ambulatory clinics and hospital sitesin [place], [place], [place] and [place]. This disclosure is being madepursuant to the Care Everywhere program and may not contain all information available regarding this patient. Last updated 17.[facility] Allergies No known active allergies [...] once daily Active vitamin D, ergocalciferol, (DRISDOL) 49035 UNITS capsule Take 50,000 Units by mouth [...] Comments Blood Pressure 169/86 04/07/2018 2:03 PM CLOTH COVERED HELMET PULLER Pulse 69 04/07/2018 2:03 PM CLOTH COVERED HELMET PULLER Temperature 36.1 C (96.9 F) 03/23/2018 4:31 PM CLOTH COVERED HELMET PULLER Respiratory Rate 18 03/23/2018 4:31 PM CLOTH COVERED HELMET PULLER Oxygen Saturation 94% 03/23/2018 4:31 PM CLOTH COVERED HELMET PULLER Inhaled Oxygen Concentration - - Weight 62.6 kg (138 lb) 10/05/2018 10:22 AM CDT Height 160 cm (5' 3 ) 10/05/2018 10:22 AM CDT Body Mass Index 24.45 10/05/2018 10:22 AM CDT Functional Status Functional Status Response Date of Assess ment Is person deaf or have serious hearing difficult y? Yes 03/20/2018 Is person blind or have serious difficulty seein g? No 03/20/2018 Does person have serious dif ficulty walking/climbing stairs? Yes 03/20/2018 Does person have difficulty dressing/bathing? Ye s 03/20/2018 Does person have difficulty doing errands alone? Yes 03/20/2018 Cognitive Status Response Date of Assessm ent Does person have difficulty concentrating/remembering/making decisions? No 03/20/2018 Plan of Treatment Not on file Advance Directives * DNR - IF PULSELESS [...] orders without asking attending physician. Care Teams Blocker Hand Relationship Specialty Start Date End Date Keyon Crocker MD [address] [phone] PCP - General Internal Medicine 03/19/18 [place] [address] [facility] [place] [address] PCP - Strive [facility] 01/01/24 Care, [facility] Care Management 07/30/21
--- OUTSIDE RECORDS SUMMARY | 2024-05-05 14:12 | XMS_ITS | Encounter Summary ---
Author Organization [facility] Address [address] [place] [address] Care Team Providers Care Extracorporeal Circulation Specialist Name Role Phone Keyon Crocker MD Primary Care Provider Encounter Details Date Type Department Care Team (Late Contact Info) Description 05/04/2024 Orders Only [facility] Oncology and Hematology Evaristo [address] [place] [address] Jung Arvizu MD [facility] [address] [place] [address] Social History Tobacco Use Types Packs/Day Years Used Date Smoking Tobacco: Former Cigarettes 2 30 0 06/01/1944 - 06/01/1974 Smokeless Tobacco: Never Alcohol Use Standard Drinks/Week Comments Yes 0 (1 standard drink = 0.6 oz pur e alcohol) Sex and Gender Information Value Date Recorded Sex Assigned at Not on file Legal Sex Male 12:03 PM HYDROMETER TESTER Gender Identity Not on file Sexual Orientation Not on file documented as of this encounter Plan of Treatment Upcoming Encounters Date Type Department Care Team (Late Contact Info) Description 11/16/2024 1:00 PM CDT Office Visit [facility] Oncology and Hematology - Evaristo [address] [place] [address] Jung Arvizu MD [facility] [employer] [address] [place] [address] documented as of this encounter Procedures Procedure Name Priority Date/Time Associated Diagnosis Comments IRON PANEL Routine 04/26/2024 3:06 PM HYDROMETER TESTER documented in this encounter Results * IRON PANEL (04/26/2024 3:06 PM HYDROMETER TESTER) Blood Jung Arvizu MD CHEMISTRY ORDERABLES Final Resu lt documented in this encounter Visit Diagnoses Not on filedocumented in this encounter Care Teams Extracorporeal Circulation Specialist Relationship Specialty Start Date End Date Keyon Crocker MD PCP - General Internal Medicine 03/09/18 documented as of this encounter
--- OUTSIDE RECORDS SUMMARY | 2024-05-05 14:12 | XMS_ITS | Continuity of Care Document ---
Author Organization [facility] Address [address] [place] [address] Phone Care Team Providers Care Track Template Maker Name Role Phone Lauro Barba Unavailable Unavailable [...] Copied on Encounter Office/outpat ient Visit, Est [facility], [address] [place] [address] [address], [place], [place], [id number], [place] tel:[phone] [facility] [place] No Information Oct-0 [address] , [address], [place], [address], [place]. tel:[phone] [facility], [address] [place] [address] [address], [place], [place], [id number], tel:[phone] [facility] No Information [address] , [address], [place], [address], [place]. tel:[phone] Office/outpat ient Visit, Est [facility], [address], [place], [place], [address], [place] tel:[phone] SEC [facility] No Information [address] [facility] , [address], [place], [address], . tel:[phone] [facility], [address], [place], [place], [id number], [place] tel:[phone] [facility] No Information [address] [facility] , [address], [place], [address], . tel:[phone] Family History Family Member Type Diagnosis Age At Onset No Information Payers Payer name Insurance type Covered republican ID Authoriza tiwilbert(s) [place] [id number] Social History Type Description Quantity Date Captured [...]
== END 2024-05-05 12:55 | disposition home or self-care (01) ==
LOC: ANHLAB 12:55
PROVIDERS: PCP Internal Medicine; Visit Provider Internal Medicine Hematology & Oncology
DX: N18.4 Chronic kidney disease, stage 4 (severe) (principal); D63.1 Anemia in chronic kidney disease
CPT/HCPCS: 36415; 85025

== ENCOUNTER 2024-11-16 12:41 | Outpatient (CLI) | payer MEDICARE, BC, SELFPAY ==
--- OUTSIDE RECORDS SUMMARY | 2008-12-04 08:00 | XMS_ITS | Continuity of Care Document ---
Author Organization [facility] Address [address] [facility] [address] [place] [address] Phone Care Team Providers Care Crossing Guard Name Role Phone Lauro Barba Unavailable Unavailable Procedures Procedure Date Office/outpatient Visit, Est Dilated Retinal Exam W Interpretation Oc No Script Eye Exam & Treatment Dilated Retinal Exam W Interpretation Ap r No Script Office/outpatient Visit, Est Dilated Retinal Exam W Interpretation Oc Eye Exam & Treatment Refraction Dilated Retinal Exam W Interpretation Ap No Evidence Of Retinopathy In Prior Year Advance Directives Directive Yes / No Effective Date File Name No Information Encounters Encounter Description Practice Location Reason(s) For Visit Diagnoses Date Provider Providers Copied on Encounter Office/outpat ient Visit, Est [facility], [address] [place] [address] [address], [place], [place], [id number], tel:[phone] [facility] No Information Oct-0 [address] Restrepo. [address] , [address], [place], [address], [place]. tel:[phone] [facility], [address] [place] [address] [address], [place], [place], [id number], tel:[phone] [facility] No Information [address] Restrepo. [address] , [address], [place], [address], [place]. tel:[phone] Office/outpat ient Visit, Est [facility], [address], [place], [place], [address], [place] tel:[phone] [facility] No Information [address] Jameson Edosman. [address] [facility] , [address], [place], [address], . tel:[phone] [facility], [address], [place], [place], [address], [place] tel:[phone] [facility] No Information [address] Jameson Edosman. [address] [facility] , [address], [place], [address], . tel:[phone] Family History Family Member Type Diagnosis Age At Onset No Information Payers Payer name Insurance type Covered libertarian ID Authoriza tiwilbert(s) [place] [id number] Social History Type Description Quantity Date Captured Comments Sex Male Smoking Status No Information Chief Complaint And Reason For Visit No Information Reason For Referral Reason For Referral No Information History Of Present Illness Encounter Date Complaint History Of Prese nt Illness No Information Functional Status Date Functional Assessmen t No Information Instructions Date Instruction Additional Infor mation No Information Assessments Type Assessment Date No Information Patient Care Teams Name Effective Dates (start - stop) Status Members No Information
--- OUTSIDE RECORDS SUMMARY | 2024-11-16 12:47 | XMS_ITS | Clinical Summary ---
Author [facility] Address [address] [place] [address] Care Team Providers Care Skirt Panel Assembler Name Role Phone Keyon Crocker MD Primary [...] 100 mg capsule Take by mouth. 08/26/19 Active Synthroid 25 mcg tablet TAKE 1 [...] Encounters Date Type Department Care Team Description 11/15/2024 External Device Data STL ABSTRACTION Provider, Abstract 09/14/2024 External Device Data STL ABSTRACTION Provider, Abstract 09/14/2024 External Device Data [facility] ABSTRACTION Provider, Abstract 08/23/2024 External Device Data STL ABSTRACTION Provider, Abstract 08/16/2024 External Device Data STL ABSTRACTION Provider, Abstract [...] on file Legal Sex Male 12:03 PM AIR BRAKES INSPECTOR Gender Identity Not on file Sexual Orientation Not on file Last Filed Vital Signs Vital Sign Reading Time Taken Comments Blood Pressure 138/71 05/05/2024 1:17 PM AIR BRAKES INSPECTOR Pulse 66 05/05/2024 1:14 PM AIR BRAKES INSPECTOR Temperature 36.6 C (97.8 F) 05/05/2024 1:14 PM AIR BRAKES INSPECTOR Respiratory Rate 15 05/05/2024 1:14 PM AIR BRAKES INSPECTOR Oxygen Saturation 95% 05/05/2024 1:14 PM AIR BRAKES INSPECTOR Inhaled Oxygen Concentration - - Weight 62.1 kg (137 lb) 05/05/2024 1:14 PM AIR BRAKES INSPECTOR Height 160 cm (5' 3) 09/12/2021 1:09 PM CDT Body Mass Index 24.27 09/12/2021 1:09 PM CDT Plan of Treatment Upcoming Encounters Date Type Department Care Team (Late st Contact Info) Description 11/16/2024 1:00 PM CDT Office Visit [facility] Oncology and Hematology - [place] [address] [facility] [address] [place] [address] Jung Arvizu MD [address] [facility] [address] [place] [address] Health Maintenance Due Date Last Done Comments DIABETES ANNUAL FOOT EXAM [birth year]04/1953 DIABETES MICROALBUMIN ANNUAL SCREEN 06/04/1953 LDL CHOLESTEROL ANNUAL 06/04/1953 RSV VACCINE (60+ or ) (1 - 1-dose 75+ series) 06/04/2010 INFLUENZA VACCINE (#1) 2024 , 12/24/2022, 12/26/2021, Additional history exists COVID-19 Vaccine (2023-2 5 season) 2024 11/20/2023, 01/06/2023, 12/26/2021, Additional history exists DIABETES HBA1C Q 6 MONTHS 02/15/20252024, 06/07/2024, 05/12/2024, Additional history exists DIABETES ANNUAL RETINAL EXAM 08/11/202501/2025, 11/29/2021, 04/10/2017, Additional history exists DTAP/TDAP/TD VACCINES (2 - T d or Tdap) 01/06/2033 01/06/2023 PNEUMOCOCCAL VACCINE 50+ YEARS Completed 02/05/2017 , 02/06/2016 ZOSTER VACCINE Completed 05/03/2019, 01/04/2019 Insurance MEDICARE PART A AND B [employer] [place] PPO MEDICARE PART A AND B [employer] [place] PPO Care Teams Skirt Panel Assembler Relationship Specialty Start Date End Date Keyon Crocker MD PCP - General Internal Medicine 03/09/18
--- OUTSIDE RECORDS SUMMARY | 2024-11-16 12:47 | XMS_ITS | Clinical Summary ---
Author Organization [facility] Address [address] [facility] [place] [address] Care Team Providers Care Greenhouse Technician Name Role Phone Keyon Crocker MD Primary Care Provider Care, [facility] Unavailable Keyon Crocker MD Unavailable [phone] Source Comments [facility],non-owned Affiliates and Associated Physician Practices is amultiple site organization consisting of ambulatory clinics and hospital sitesin [place], [place], [place] and [place]. This disclosure is being madepursuant to the Care Everywhere program and may not contain all information available regarding this patient. Last updated 17.[facility] Allergies No known active allergies Medications * Be aware that medications may not be up to date on this document. Alwaysverify current medications with the patient. aspirin (ASPIRIN) 81 MG chew tablet Take 81 mg by mouth once daily Active atorvastatin (LIPITOR) 40 MG tablet Take 40 mg by mouth at bedtime Active calcitriol (ROCALTROL) 0.25 MCG capsule Take 0.25 mcg by mouth once daily Active vitamin D, ergocalciferol, (DRISDOL) 04337 UNITS capsule Take 50,000 Units by mouth [...] Take 17 g by mouth once daily 03/24/19 19 Active amiodarone (CORDARONE) 200 MG tablet Take 1 tablet by mouth once daily 03/24/19 19 Active ondansetron (ZOFRAN) 4 MG tablet Take 1 tablet by mouth every 6 hours as needed for Nausea/Vomiting 10 tablet 03/23/19 19 Active oxyCODONE-aceta minophen (PERCOCET) 5-325 MG tablet Take 1 tablet by mouth every 6 hours as needed 30 tablet 03/23/19 19 Active lisinopril (PRINIVIL; ZESTRIL) 40 MG tablet 12/23/19 18 Active losartan (COZAAR) 50 MG tablet TK 1 T PO QD 0 03/23/19 19 Active phenytoin ER (DILANTIN) 100 MG capsule 03/03/19 19 Active furosemide (LASIX) 20 MG tablet Take by mouth once daily 2 06/17/19 19 Active Aspirin (ASPIR-LOW) 81 MG qd Active [...] at Not on file Legal Sex Male 1:19 AM PROGRAM MANAGEMENT SPECIALIST Gender Identity Not on file Sexual Orientation Not on file Last Filed Vital Signs Vital Sign Reading Time Taken Comments Blood Pressure 169/86 04/07/2018 2:03 PM PROGRAM MANAGEMENT SPECIALIST Pulse 69 04/07/2018 2:03 PM PROGRAM MANAGEMENT SPECIALIST Temperature 36.1 C (96.9 F) 03/23/2018 4:31 PM PROGRAM MANAGEMENT SPECIALIST Respiratory Rate 18 03/23/2018 4:31 PM PROGRAM MANAGEMENT SPECIALIST Oxygen Saturation 94% 03/23/2018 4:31 PM PROGRAM MANAGEMENT SPECIALIST Inhaled Oxygen Concentration - - Weight 62.6 kg (138 lb) 10/05/2018 10:22 AM CDT Height 160 cm (5' 3) 10/05/2018 10:22 AM CDT Body Mass Index 24.45 10/05/2018 10:22 AM CDT Plan of Treatment Health Maintenance Due Date Last Done Comments DTAP/TDAP/TD VACCINES (1 - Tdap) 06/04/1954 PNEUMOCOCCAL VACCINE 50+ (1 of 1 - PCV) 06/04/1985 ZOSTER VACCINE (1 of 2) 06/04/1985 Respiratory Syncytial Virus (RSV) Vaccine Pt: or over 60 yrs (1 - 1-dose 75+ series) 06/04/2010 DEPRESSION SCREENING 03/02/2024 COVID-19 VACCINE (1 - 2023-2 5 season) 2024 INFLUENZA VACCINE (#1) 2024 12/15/2017 HEPATITIS B VACCINE Aged Out No longe r eligible based on patient's age to complete this topic HIB VACCINE Aged Out No longer eligi ble based on patient's age to complete this topic HPV VACCINE Aged Out No longer eligi ble based on patient's age to complete this topic MENINGOCOCCAL (Group B) VACC INE SHARED DECISION-MAKING Aged Out No longer eligibl e based on patient's age to complete this topic MENINGOCOCCAL GROUPS A/C/Y/W VACCINE Aged Out No longer eligible b ased on patient's age to complete this topic Insurance MEDICARE [facility] [address] [id number] MEDICARE [facility] Advance Directives * DNR - IF PULSELESS [...] orders without asking attending physician. Care Teams Greenhouse Technician Relationship Specialty Start Date End Date Keyon Crocker MD [address] [phone] PCP - General Internal Medicine 03/19/18 Keyon Crocker MD [address] [phone] PCP - Strive [facility] 06/30/24 [facility], [facility] [address] [facility] Care Management 07/30/21
--- OUTSIDE RECORDS SUMMARY | 2024-11-16 12:47 | XMS_ITS | Clinical Summary ---
Author Organization [facility] Address [address] [place] [address] Phone Care Team Providers Care Selling Underwriter Name Role Phone Keyon Crocker MD Primary [...] Sign Reading Time Taken Comments Blood Pressure 118/67 06/23/2024 10:37 AM CDT Pulse 88 06/23/2024 10:37 AM CDT Temperature 36.7 C (98.1 F) 06/23/2024 10:37 AM CDT Respiratory Rate 16 06/23/2024 10:37 AM CDT Oxygen Saturation 97% 06/23/2024 10:37 AM CDT Inhaled Oxygen Concentration - - Weight - - Height - - Body Mass Index - - Plan of Treatment Upcoming Encounters Date Type Department Care Team (Late st Contact Info) Description 12/26/2024 10:00 AM CDT Clinical Support [facility] Oncology Services [address] [place] [address] Keyon Crocker MD [address] [place] [address] Discharge Disposition: Discharged to home or Selfcare Health Maintenance Due Date Last Done Comments Hepatitis C Virus (HCV) Screening 1935 Influenza Immunization (#1) 2024 09/2 , 12/24/2022, 12/26/2021, Additional history exists SARS-COV-2 Immunization ( season) 2024 11/20/2023, 01/06/2023, 12/26/2021, Additional history exists Pneumococcal Immunization (50+ years) Completed 02/05/2017, 02/06/2016 Zoster Immunization Completed 05/03/2019, 04/02/2019, 01/04/2019 DTaP/Tdap/Td Immunization Discontinued 01/06/2023 Respiratory Syncytial Virus (RSV) Immunization (Adult) Completed 01/06/2023 TdaP Immunization Completed 01/06/2023 Hepatitis B Immunization Aged Out No longer eligible based on patient's age to complete this topic Human Papillomavirus (HPV) Immunization Aged Out No longer eligible based on patient's age to complete this topic Meningococcal Immunization (ACWY) Aged Out No longer eligible based on patient's age to complete this topic Rotavirus Immunization Aged Out No lo nger eligible based on patient's age to complete this topic Insurance MEDICARE [facility] Care Teams Selling Underwriter Relationship Specialty Start Date End Date Keyon Crocker MD [address] [place] [address] PCP - General Internal Medicine 07/17/21
--- OUTSIDE RECORDS SUMMARY | 2024-11-16 12:47 | XMS_ITS | Encounter Summary ---
Author Organization [facility] Address [address] [place] [address] Care Team Providers Care Director Of Dance Name Role Phone Keyon Crocker MD Primary Care Provider Encounter Details Date Type Department Care Team (Late st Contact Info) Description 11/15/2024 External Device Data [facility] ABSTRACTION Provider, Abstract NO ADDRESS ON FILE Social History Tobacco Use Types Packs/Day Years Used Date Smoking Tobacco: Former Cigarettes 2 30 0 [birth year]/01/1944 - 06/01/1974 Smokeless Tobacco: Never Alcohol Use Standard Drinks/Week Comments Yes 0 (1 standard drink = 0.6 oz pur e alcohol) Sex and Gender Information Value Date Recorded Sex Assigned at Not on file Legal Sex Male 12:03 PM MANAGEMENT PSYCHOLOGIST Gender Identity Not on file Sexual Orientation Not on file documented as of this encounter Plan of Treatment Upcoming Encounters Date Type Department Care Team (Late st Contact Info) Description 11/16/2024 1:00 PM CDT Office Visit [facility] Oncology and Hematology - [place] [address] [facility] [address] [place] [address] Jung Arvizu MD [address] [facility] [address] [place] [address] documented as of this encounter Visit Diagnoses Not on filedocumented in this encounter Care Teams Director Of Dance Relationship Specialty Start Date End Date Keyon Crocker MD PCP - General Internal Medicine 03/09/18 documented as of this encounter
--- OUTSIDE RECORDS SUMMARY | 2024-11-16 12:47 | XMS_ITS | Clinical Summary ---
Author Organization [facility] Address [address] [place] [address] Care Team Providers Care Picker Packer Name Role Phone Jose Crocker MD Primary [...] ASPIRIN 81 MG ORAL TABLET 4 Active levothyroxine (SYNTHROID) 50 mcg tablet Take 1 tablet (50 mcg total) by mouth daily 5 Active ciprofloxacin (CIPRO) 500 mg tablet Take 1 tablet (500 mg total) by mouth 2 (two) times a day 5 Active lamoTRIgine XR (LaMICtal XR) 300 mg tablet extended release 24hr Active isosorbide mononitrate ER (IMDUR) 30 mg 24 hr tablet Active icosapent ethyL (Vascepa) 1 gram capsule Take 2 capsules twice a day by oral route for 90 days. Active denosumab (Prolia) 60 mg/mL syringe Inject 1 ml by subcutaneous route. 4 Active glucagon (Gvoke PFS 1-Pack Syringe) 0.5 mg/0.1 mL syringe INJECT 1 MG NEEDED BY SUBCUTANEOUS ROUTE FOR ONE DAY. 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) Take 2 capsules (200 mg total) by mouth 2 (two) times a day 360 capsule 3 5 09/07/19 26 Active Active Problems Problem Noted Date Diagnosed [...] Chronic ulcerative proctitis 06/09/2011 Open wound 10/31/2010 Encounters Date Type Department Care Team Description 11/08/2024 Telephone [facility] [address] [place] [address] [place] [phone] Sharona Starkey NP Med Management 09/06/2024 8:30 AM CDT Office Visit [facility] [address] [place] [address] [place] [phone] Sharona Starkey NP Nonintractable generalized idiopathic epilepsy without status epilepticus (HCC) 08/29/2024 Telephone [facility] [address] [place] [address] [place] [phone] Starkey, Sharona Breonna, ASSISTANT COMMUNITY DIRECTOR Labs not completed (Phenytoin Level) from Last 3 Months Surgical History Surgery Date Site/Laterality Comments 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 - (Added by TW Conv) DC CONTINENT ILEOSTOMY KOCK PROCEDURE SPX Ileostomy Care [...] on file Legal Sex Male 1:31 AM IMPROVEMENT ADVISOR Gender Identity Not on file Sexual Orientation Not on file Obstetrics History Last Filed Vital Signs Vital Sign Reading Time Taken Comments Blood Pressure 106/58 09/06/2024 8:32 AM CDT Pulse 75 09/06/2024 8:32 AM CDT Temperature 36.3 C (97.3 F) 09/12/2021 10:06 AM CDT Respiratory Rate - - Oxygen Saturation 98% 08/29/2014 10:59 AM CDT Inhaled Oxygen Concentration - - Weight 65.3 kg (144 lb) 09/06/2024 8:32 AM CDT Height 160 cm (5' 3) 09/06/2024 8:32 AM CDT Body Mass Index 25.51 09/06/2024 8:32 AM CDT Plan of Treatment Health Maintenance Due Date Last Done Comments Albumin Creatinine Ratio, Urine 1935 Depression Screening 1935 Fall Risk Assessment 1935 Foot Exam 1935 TSH Level 1935 eGFR 1935 Dilated Eye Exam 06/04/1945 DTaP/Tdap/Td Vaccine (1 - Tdap) 06/04/1946 Hepatitis B Screening 06/04/1953 Well Visit 65+ 06/04/2000 Lipid Panel 06/14/2015 06/13/2014, 06/10/2013 Hemoglobin A1C 09/18/2018 03/21/2018 Covid-19 Vaccine (3 - Modern a risk series) 06/22/2020 05/25/2020, 04/27/2020 Influenza Vaccine (#1) 2024 9, 01/04/2019, 12/15/2017, Additional history exists Pneumococcal vaccine 65+ Completed 02/05/2017, 08/2015 Zoster Vaccine Completed 05/03/2019, 03/2019, 01/04/2019 Procedures Procedure Name Priority Date/Time Associated Diagnosis Comments SERUM LIPID PANEL Routine 06/13/2014 5:2 3 AM CDT from Last 3 Months or Most Recently Relevant to Health Maintenance Results * (ABNORMAL) Serum lipid panel (06/13/2014 5:23 AM CDT) Pathologist [facility] Cholesterol 122 0 - 200 mg/dl HISTORICAL [...] Recently Relevant to Health Maintenance Insurance MEDICARE [facility] MEDICARE [facility] OOS Care Teams Picker Packer Relationship Specialty Start Date End Date Jose Crocker MD [address] [facility] [address] [place] [address] PCP - General Internal Medicine 11/14/19
[2024-11-16 13:08] LABS: Hematocrit 31.7 % (42.0-52.0); Hemoglobin 10.6 g/dL (14.0-18.0); Mean Corpuscular HGB Conc 33.4 g/dl (32-36); Mean Corpuscular Hemoglobin 31.2 pg (26-34); Mean Corpuscular Volume 93.2 fl (80-100); Platelet Count Result 153 k/mm3 (150-375); Red Blood Count 3.40 M/mm3 (4.6-6.20); White Blood Count 5.9 K/mm3 (4.5-10.0)
[2024-11-16 13:13] LABS: Blood Urea Nitrogen 26 mg/dL (8-26); Carbon Dioxide 22 mmol/L (22-30); Chloride 104 mmol/L (98-109); Estimated Glomerular Filt Rate 34; Glucose 139 mg/dL (70-105); Ionized Calcium (POC) 1.26 mmol/L (1.11-1.31); Potassium 3.7 mmol/L (3.5-4.9); Sodium 138 mmol/L (138-146)
== END 2024-11-16 12:42 | disposition home or self-care (01) ==
LOC: ANHLAB 12:41
PROVIDERS: PCP Internal Medicine; Visit Provider Internal Medicine Hematology & Oncology
DX: N18.4 Chronic kidney disease, stage 4 (severe) (principal); D63.1 Anemia in chronic kidney disease
CPT/HCPCS: 36415; 80047; 85027